=== PATIENT | female | born 1990 | race Caucasian/White ===

== ENCOUNTER → 2017-02-28 | Outpatient (CLI) | payer MEDICAID ==
[2017-02-28 12:00] LABS: CH 29.9; CHCM 32.4; HCT 39.6 % (34.0-46.0); HDW 2.42; HGB 12.5 gm/dL (11.4-16.0); MCH 29.1 pg (25.0-35.0); MCHC 31.5 g/dL (31.0-37.0); MCV 92.4 fL (80.0-100.0); Mean Platelet Volume 7.1; RBC 4.28 m/uL (3.80-5.40); RDW 14.6 % (11.5-15.5); WBC 7.8 k/uL (3.8-10.6)
[2017-02-28 12:12] LABS: Glucose 106 mg/dL (74-99); Non-African American GFR(MDRD) >60 (>60 ml/min/1.73 sqM)
[2017-02-28 12:37] LABS: Hepatitis B Surface Ag Index 0.07
== END | disposition home or self-care (01) ==
LOC: LABWHC1 11:03
PROVIDERS: ATTEND Obstetrics & Gynecology
DX: Z34.81 Encounter for supervision of other normal pregnancy, first trimester (principal)
CPT/HCPCS: 36415; 82565; 82947; 85027; 86762; 86780; 86850; 86900; 86901; 87340

== ENCOUNTER → 2017-04-09 | Outpatient (CLI) | payer MEDICAID ==
--- NOTE | 2017-03-21 08:02 | US ---
EXAMINATION TYPE: US OB anatomy transabd DATE OF EXAM: 03/21/2017 COMPARISON: NONE HISTORY: O36.62X0 Large for dates Anatomy TECHNIQUE: OBTA EXAM MEASUREMENTS: GESTATIONAL AGE / DATING Physician Established: (19 weeks/0 days) EDC: 08/15/2017 Dates by LMP: unknown Dates by First Scan: DRUG ABUSE PROGRAM COORDINATOR Dates by Current Scan for: (19 weeks/1 days) EDC: 08/14/2017 SURVEY IUP: Single PLACENTA: Posterior PREVIA: No previa REYES: 15.8 cm Normal CERVICAL LENGTH (transabdominal: norm > 3.0cm): 5.5 cm BIOMETRY PRESENTATION: Vertex LIE: Longitudinal BPD: 4.3 cm 18 weeks / 6 days HC: 16.1 cm 19 weeks / 0 days AC: 14.6 cm 19 weeks / 6 days FL: 3.0 cm 19 weeks / 2 days ESTIMATED WEIGHT IN GRAMS: 298 grams ESTIMATED WEIGHT IN LBS/OZS: 0 lbs. 11 oz. WEIGHT PERCENTAGE BASED ON ESTABLISHED DATE: 77 % HC/AC: 1.1 Normal FL/AC: 20.6 Normal HEART RATE: 149 bpm RHYTHM: Normal ANATOMY SEEN (within normal limits): * Lateral Vent (< 1 cm) 0.6 cm * Cisterna Magna (< 1.1 cm) 0.3 cm * Nuchal Fold (< 0.6 cm) 0.2 cm * Cerebellum (varies with age) 1.9 cm Choroid Plexus (bilateral) Midline Falx Cavus Septi Pellucidi Four Chamber Heart Stomach Situs Diaphragm Kidneys (bilateral) Bladder Cord Insert Three Vessel Cord Longitudinal Spine Transverse Spine Arms (bilateral) Legs (bilateral) ANATOMY NOT SEEN:2nd tech was [place], OB call back 04/09/17 @ 820 Outflow tracts: LVOT/RVOT Nose / Lips IMPRESSION: 1. Single intrauterine gestation estimated at 19 weeks 1 day gestation based on current ultrasound me asurements. This would have a calculated EDC of 08/14/2017. Correlate this with her physician establi shed EDC. 2. Cardiac activity measures 149 bpm. 3. Outflow tracts and nose and lips are not identified during this exam.
--- NOTE | 2017-04-09 10:58 | US ---
EXAMINATION TYPE: US OB Call Back DATE OF EXAM: 04/09/2017 COMPARISON: 03/21/2017 CLINICAL HISTORY: 26-year-old female O36.62X0 Large for dates. OB call back for outflow tracts and no se/lips FINDINGS: GESTATIONAL AGE / DATING Dates by Initial Survey Scan: (21 weeks/5 days) EDC: 08/15/2017 HEART RATE: 150 bpm RHYTHM: Normal ANATOMY SEEN (second anatomic survey look): Four Chamber Heart: wnl, incidental redundant flaps of the foramen ovale, normal imaging variant. Outflow tracts:? LVOT/RVOT Nose / Lips: wnl AGRICULTURAL SERVICES DIRECTOR NOTES: Outflow tracts and nose/lips visualized and appears within normal limits. IMPRESSION: The cardiac outflow tracts and nose/lips are visualized and appear normal. This completes the s urvey.
== END | disposition home or self-care (01) ==
LOC: RADUSWWP 03-21 06:53
PROVIDERS: ATTEND Obstetrics & Gynecology
DX: O36.62X0 Maternal care for excessive fetal growth, second trimester, not applicable or unspecified (principal); Z3A.19 19 weeks gestation of pregnancy
CPT/HCPCS: 76811

== ENCOUNTER 2017-04-26 12:03 | Outpatient (CLI) | payer MEDICAID ==
[2017-04-26 12:56] VITALS: BP 119/63; PULSE 107; RESP 16; TEMP 97.2
--- NOTE | 2017-04-26 14:15 | US ---
EXAMINATION TYPE: US OB >= 14 wk fetus DATE OF EXAM: 04/26/2017 COMPARISON: None CLINICAL HISTORY: ? srom at 24 weeks. Leaking fluid for a few weeks, fluid was tested today and was n egative for amniotic fluid TECHNIQUE: OBTA GESTATIONAL AGE / DATING Physician Established: (24 weeks/1 days) EDC: 08/15/2017 Dates by LMP: Dates by First Scan: (24 weeks/2 days) EDC: 08/14/2017 Dates by Current Scan: (24 weeks/5 days) EDC: 08/11/2017 SURVEY IUP: [place] PLACENTA: Posterior PREVIA: None REYES: 19.5 cm normal CERVICAL LENGTH (transabdominal: norm > 3.0cm): 3.8 cm BIOMETRY PRESENTATION: breech BPD: 6.2 cm 25 weeks / 2 days HC: 22.9 cm 25 weeks / 0 days AC: 19.6 cm 24 weeks / 3 days FL: 4.6 cm 25 weeks / 2 days ESTIMATED WEIGHT IN GRAMS: 739 grams ESTIMATED WEIGHT IN LBS/OZS: 1 lbs. 10 oz. WEIGHT PERCENTAGE BASED ON ESTABLISHED DATES: 73% HC/AC: 1.1 wnl FL/AC: 23.4 wnl HEART RATE: 145 bpm RHYTHM: normal survey is limited. IMPRESSION: Amniotic fluid index is normal. Single viable intrauterine corresponding to ultrasound age of 24 weeks 5 days with estimated date of delivery 08/11/2017. Limited survey.
--- NOTE | 2017-05-03 09:52 | P.MSEPDOC ---
Presenting Problems - Arrival Data Date of Arrival on Unit: 04/26/17 Time of Arrival on Unit: 12:05 Mode of Transport: Stretcher - Complaint OB-Reason for Admission/Chief Complaint: Rule Out PROM Medical History - Information : 2 Para: 1 Term: 1 : 0 Abortions: Spontaneous or Elective: 0 Number of Living Children: 1 - Gestational Age Expected Date of Delivery: 08/15/17 Gestational Age by DREW (wks/days): 25 Weeks and 1 Days Review of Systems - Review of Systems Constitutional: No problems Breast: No problems ENT: No problems Cardiovascular: No problems Respiratory: No problems Gastrointestinal: No problems Genitourinary: No problems Musculoskeletal: No problems Neurological: No problems Skin: No problems Comment: amsthma inhaler used if needed Vital Signs - Temperature Temperature: 97.2 F Temperature Source: Tympanic - Pulse Right Radial Pulse Rate: 107 Pulse Assessment Method: Automatic Cuff - Respirations Respiratory Rate: 16 Oxygen Delivery Method: Room Air O2 Sat by Pulse Oximetry: 99 - Blood Pressure Right Arm Blood Pressure: 119/63 Blood Pressure Mean: 81 Blood Pressure Source: Automatic Cuff Medical Screen Scoring (Pre) - Uterine Contractions Frequency: N/A Duration: N/A Intensity: N/A - Maternal Vital Signs Maternal Temperature: N/A Maternal Blood Pressure: N/A Signs of Preeclampsia: N/A Maternal Respirations: N/A - Maternal Trauma Maternal Trauma: N/A - Assessment Baseline FHR: 140 Heart Rate - NICHD Category: Category I (Normal) = 0 Position: N/A Station: N/A - Total Score Total Score (Pre): 0 - Level of Risk Level of Risk: Low (0-5) Physician Notification (Pre) - Physician Notified Physician Notified Date: 04/26/17 Physician Notified Time: 12:30 Physician/Practitioner Notifed:: edwar Spoke With: edwar New Order Received: Yes (trige/ultrasound/discharge) - Notification Comment Comment: call reports to dr blue Disposition - Disposition OB Disposition: Discharge to home Discharge Date: 04/26/17 Discharge Time: 13:40 I agree with the RN Medical Screening Exam: Yes Risk & Benefit of care provided described in d/c instruction: Yes Diagnosis: FALSE LABOR AT OR AFTER 37 COMPLETED WEEKS OF GESTATION
== END 2017-04-26 13:40 | disposition home or self-care (01) ==
LOC: FBPOP 12:03
PROVIDERS: ATTEND Obstetrics & Gynecology
DX: O47.1 False labor at or after 37 completed weeks of gestation (principal); Z3A.24 24 weeks gestation of pregnancy
CPT/HCPCS: 76805; 84112; 99213

== ENCOUNTER → 2017-05-03 | Outpatient (CLI) | payer MEDICAID ==
[2017-05-03 11:11] LABS: CH 30.4; CHCM 31.8; HCT 35.3 % (34.0-46.0); HDW 2.73; HGB 11.3 gm/dL (11.4-16.0); Hypochromasia Slight; MCH 30.7 pg (25.0-35.0); MCV 96.1 fL (80.0-100.0); Mean Platelet Volume 7.7; RBC 3.67 m/uL (3.80-5.40); RDW 15.6 % (11.5-15.5)
== END | disposition home or self-care (01) ==
LOC: LABWHC1 09:44
PROVIDERS: ATTEND Obstetrics & Gynecology
DX: Z34.82 Encounter for supervision of other normal pregnancy, second trimester (principal)
CPT/HCPCS: 36415; 82950; 85027

== ENCOUNTER → 2017-05-04 | Outpatient (CLI) | payer MEDICAID ==
[2017-05-04 11:01] LABS: CHCM 32.2; HCT 35.2 % (34.0-46.0); HDW 2.75; HGB 11.5 gm/dL (11.4-16.0); MCH 30.7 pg (25.0-35.0); MCHC 32.7 g/dL (31.0-37.0); MCV 93.8 fL (80.0-100.0); Mean Platelet Volume 7.7; RBC 3.75 m/uL (3.80-5.40); RDW 15.3 % (11.5-15.5); WBC 9.7 k/uL (3.8-10.6)
== END | disposition home or self-care (01) ==
LOC: LABWHC1 09:46
PROVIDERS: ATTEND Obstetrics & Gynecology
DX: Z34.82 Encounter for supervision of other normal pregnancy, second trimester (principal)
CPT/HCPCS: 36415; 82950; 85027

== ENCOUNTER 2017-05-29 10:39 | Outpatient (CLI) | payer MEDICAID ==
[2017-05-29 12:41] VITALS: BP 134/61; PULSE 129; RESP 18; TEMP 98.4
--- NOTE | 2017-05-30 08:37 | P.MSEPDOC ---
Presenting Problems - Arrival Data Date of Arrival on Unit: 05/29/17 Time of Arrival on Unit: 10:43 Mode of Transport: Ambulatory - Complaint OB-Reason for Admission/Chief Complaint: Other Comment: SOB, dizziness, tachycardia Medical History - Information : 2 Para: 1 Term: 1 : 0 Abortions: Spontaneous or Elective: 0 Number of Living Children: 1 - Gestational Age Expected Date of Delivery: 08/15/17 Gestational Age by DREW (wks/days): 29 Weeks and 0 Days Review of Systems - Review of Systems Constitutional: No problems Breast: No problems ENT: No problems Cardiovascular: No problems Respiratory: JHONY Gastrointestinal: No problems Genitourinary: No problems Musculoskeletal: No problems Neurological: No problems Skin: No problems Vital Signs - Temperature Temperature: 98.4 F Temperature Source: Oral - Pulse Right Pulse Rate: 129 Pulse Assessment Method: Automatic Cuff - Respirations Respiratory Rate: 18 Oxygen Delivery Method: Room Air O2 Sat by Pulse Oximetry: 99 - Blood Pressure Right Arm Blood Pressure: 134/61 Blood Pressure Mean: 85 Blood Pressure Source: Automatic Cuff Medical Screen Scoring (Pre) - Cervical Exam Dilation: Exam Deferred - Uterine Contractions Frequency: N/A Duration: N/A Intensity: N/A - Maternal Vital Signs Maternal Temperature: N/A Maternal Blood Pressure: N/A Signs of Preeclampsia: N/A Maternal Respirations: N/A - Maternal Trauma Maternal Trauma: N/A - Assessment Baseline FHR: 145 Heart Rate - NICHD Category: Category I (Normal) = 0 NST: Reactive Position: N/A Station: N/A - Total Score Total Score (Pre): 0 - Level of Risk Level of Risk: N/A Disposition - Disposition OB Disposition: Triage, Transfer to other dept./facility, Written follow up instructions reviewed Transferred to:: EC Discharge Date: 05/29/17 Discharge Time: 11:15 I agree with the RN Medical Screening Exam: Yes Risk & Benefit of care provided described in d/c instruction: Yes Diagnosis: SYNCOPE AND COLLAPSE
== END 2017-05-29 11:15 | disposition home or self-care (01) ==
LOC: FBPOP 10:39
PROVIDERS: ATTEND Obstetrics & Gynecology
DX: O26.893 Other specified pregnancy related conditions, third trimester (principal); R55 Syncope and collapse; Z3A.29 29 weeks gestation of pregnancy
CPT/HCPCS: 59025; 99213

== ENCOUNTER 2017-05-29 11:20 | Emergency (ER) | payer MEDICAID ==
[2017-05-29] MEDS ORDERED: RX INFO: IV CONTRAST WAS GIVEN 1 EACH MISC MISCELLANE PRN (12:36)
--- NOTE | 2017-05-29 12:39 | ED ---
Arrhythmia/Palpitations HPI - General Chief Complaint: Arrhythmia/Palpitations Stated Complaint: High Blood Pressure-30 wks preg Time Seen by Provider: 05/29/17 12:11 Source: patient, RN notes reviewed Mode of arrival: ambulatory Limitations: no limitations - History of Present Illness Initial Comments: This is a 26-year-old female who is currently almost 30 weeks with a single IUP who presents with complaints of shortness of breath is been persistent throughout the . She has elevated heart rate sweats blood pressure is very labile she at times will see black spots almost pass out. Today she had a monitoring which showed no acute findings no and her maladies with the with respect to the fetus. Her heart rate was noted to be in the 120s she does complain of orthopnea and sweats. The concern is for pulmonary embolism at this time. She's had no chest pain no overt fevers no cough or phlegm production. She is a nonsmoker no history of lung disease or known heart disease. MD Complaint: rapid heart beat - Related Data Home Medications Medication Instructions Recorded Confirmed Pnv,Calcium 72/Iron/Folic Acid 1 tab PO HS 03/14/05/29/17 [ Plus Tablet] Albuterol Sulfate [Proair Hfa] 2 puff INHALATION RT-Q6H PRN 05/29/17 05/29/17 Allergies Allergy/AdvReac Type Severity Reaction Status Date / Time No Known Allergies Allergy Verified 05/29/17 11:25 Review of Systems ROS Statement: Those systems with pertinent positive or pertinent negative responses have been documented in the HPI. ROS Other: All systems not noted in ROS Statement are negative. Past Medical History Past Medical History: No Reported History History of Any Multi-Drug Resistant Organisms: None Reported Additional Past Surgical History / Comment(s): [place] teeth Past Anesthesia/Blood Transfusion Reactions: No Reported Reaction Past Psychological History: ADD/ADHD, Depression Smoking Status: Former smoker Past Alcohol Use History: None Reported Past Drug Use History: None Reported - Past Family History Mother Family Medical History: Cancer General Exam - General Exam Comments Initial Comments: This a well-developed well-nourished awake alert oriented 3 female Limitations: no limitations General appearance: alert, anxious Head exam: Present: atraumatic, normocephalic, normal inspection Eye exam: Present: normal appearance, PERRL, EOMI. Absent: scleral icterus, conjunctival injection, periorbital swelling ENT exam: Present: normal exam, mucous membranes moist Neck exam: Present: normal inspection. Absent: tenderness, meningismus, lymphadenopathy Respiratory exam: Present: normal lung sounds bilaterally. Absent: respiratory distress, wheezes, rales, rhonchi, stridor Cardiovascular Exam: Present: normal rhythm, tachycardia GI/Abdominal exam: Present: soft (Abdomen is consistent with a stated gestational age) Extremities exam: Present: normal inspection, full ROM, normal capillary refill. Absent: tenderness, pedal edema, joint swelling, calf tenderness Back exam: Present: normal inspection Neurological exam: Present: alert, oriented X3, CN II-XII intact Psychiatric exam: Present: normal affect, normal mood Skin exam: Present: warm, dry, intact, normal color. Absent: rash Course Vital Signs 05/29/17 05/29/17 05/29/17 11:21 12:25 13:00 Temperature 97.3 F L Pulse Rate 117 H 108 H 111 H Respiratory 20 22 22 Rate Blood Pressure 127/65 154/95 138/82 O2 Sat by Pulse 100 99 99 Oximetry Medical Decision Making - Medical Decision Making I did discuss findings with the patient and previously with Dr. Han. Patient will be discharged she is a follow-up with cardiology she will likely have to do this through her primary doctor. - Lab Data Result diagrams: 05/29/17 11:48 05/29/17 11:48 Lab Results 05/29/17 05/29/17 05/29/17 Range/Units 11:48 11:48 11:48 WBC 12.2 H (3.8-10.6) k/uL RBC 3.83 (3.80-5.40) m/uL Hgb 11.8 (11.4-16.0) gm/dL Hct 36.4 (34.0-46.0) % MCV 95.0 (80.0-100.0) fL MCH 30.9 (25.0-35.0) pg MCHC 32.5 (31.0-37.0) g/dL RDW 16.2 H (11.5-15.5) % Plt Count 229 (150-450) k/uL Neutrophils % 80 % Lymphocytes % 14 % Monocytes % 4 % Eosinophils % 1 % Basophils % 0 % Neutrophils # 9.7 H (1.3-7.7) k/uL Lymphocytes # 1.7 (1.0-4.8) k/uL Monocytes # 0.5 (0-1.0) k/uL Eosinophils # 0.1 (0-0.7) k/uL Basophils # 0.1 (0-0.2) k/uL Anisocytosis Slight PT (9.0-12.0) sec INR (<1.2) APTT (22.0-30.0) sec Sodium 137 (137-145) mmol/L Potassium 3.8 (3.5-5.1) mmol/L Chloride 106 (98-107) mmol/L Carbon Dioxide 19 L (22-30) mmol/L Anion Gap 12 mmol/L BUN 4 L (7-17) mg/dL Creatinine 0.40 L (0.52-1.04) mg/dL Est GFR (MDRD) Af Amer >60 (>60 ml/min/1.73 sqM) Est GFR (MDRD) Non-Af >60 (>60 ml/min/1.73 sqM) Glucose 123 H (74-99) mg/dL Calcium 9.3 (8.4-10.2) mg/dL Magnesium 1.6 (1.6-2.3) mg/dL Total Bilirubin 0.1 L (0.2-1.3) mg/dL AST 18 (14-36) U/L ALT 32 (9-52) U/L Alkaline Phosphatase 140 H (38-126) U/L Total Creatine Kinase 29 L (30-135) U/L CK-MB (CK-2) 0.5 (0.0-2.4) ng/mL CK-MB (CK-2) Rel Index 1.7 Troponin I <0.012 (0.000-0.034) ng/mL Total Protein 6.4 (6.3-8.2) g/dL Albumin 3.5 (3.5-5.0) g/dL 05/29/17 Range/Units 11:48 WBC (3.8-10.6) k/uL RBC (3.80-5.40) m/uL Hgb (11.4-16.0) gm/dL Hct (34.0-46.0) % MCV (80.0-100.0) fL MCH (25.0-35.0) pg MCHC (31.0-37.0) g/dL RDW (11.5-15.5) % Plt Count (150-450) k/uL Neutrophils % % Lymphocytes % % Monocytes % % Eosinophils % % Basophils % % Neutrophils # (1.3-7.7) k/uL Lymphocytes # (1.0-4.8) k/uL Monocytes # (0-1.0) k/uL Eosinophils # (0-0.7) k/uL Basophils # (0-0.2) k/uL Anisocytosis PT 9.5 (9.0-12.0) sec INR 0.9 (<1.2) APTT 22.5 (22.0-30.0) sec Sodium (137-145) mmol/L Potassium (3.5-5.1) mmol/L Chloride (98-107) mmol/L Carbon Dioxide (22-30) mmol/L Anion Gap mmol/L BUN (7-17) mg/dL Creatinine (0.52-1.04) mg/dL Est GFR (MDRD) Af Amer (>60 ml/min/1.73 sqM) Est GFR (MDRD) Non-Af (>60 ml/min/1.73 sqM) Glucose (74-99) mg/dL Calcium (8.4-10.2) mg/dL Magnesium (1.6-2.3) mg/dL Total Bilirubin (0.2-1.3) mg/dL AST (14-36) U/L ALT (9-52) U/L Alkaline Phosphatase (38-126) U/L Total Creatine Kinase (30-135) U/L CK-MB (CK-2) (0.0-2.4) ng/mL CK-MB (CK-2) Rel Index Troponin I (0.000-0.034) ng/mL Total Protein (6.3-8.2) g/dL Albumin (3.5-5.0) g/dL - Radiology Data Radiology results: report reviewed (I did review the imaging and report no evidence of any pulmonary emboli.), image reviewed Disposition Clinical Impression: Dyspnea, Tachycardia, Near syncope Disposition: HOME SELF-CARE Condition: Good Instructions: Near Syncope (ED), Tachycardia (ED) Referrals: Caleb Peña MD [Primary Care Provider] - 1-2 days
[2017-05-29 12:53] LABS: Anisocytosis Slight; Basophils # (A) 0.1 k/uL (0-0.2); Basophils % (A) 0 %; CH 31.2; Eosinophils # (A) 0.1 k/uL (0-0.7); Eosinophils % (A) 1 %; HCT 36.4 % (34.0-46.0); HGB 11.8 gm/dL (11.4-16.0); Luc # (Auto) 0.13; Luc % (Auto) 1; Lymphocytes # (A) 1.7 k/uL (1.0-4.8); Lymphocytes % (A) 14 %; MCH 30.9 pg (25.0-35.0); MCHC 32.5 g/dL (31.0-37.0); Mean Platelet Volume 7.7; Monocytes # (A) 0.5 k/uL (0-1.0); Monocytes % (A) 4 %; Neutrophils # (A) 9.7 k/uL (1.3-7.7); Neutrophils % (A) 80 %; RBC 3.83 m/uL (3.80-5.40); RDW 16.2 % (11.5-15.5); WBC 12.2 k/uL (3.8-10.6); WBC (Perox) 12.46
[2017-05-29 13:00] LABS: INR 0.9 (<1.2); Partial Thromboplastin Time 22.5 sec (22.0-30.0); Prothrombin Time 9.5 sec (9.0-12.0)
[2017-05-29 13:03] LABS: ALT 32 U/L (9-52); AST 18 U/L (14-36); Alkaline Phosphatase 140 U/L (38-126); Anion Gap 12 mmol/L; Blood Urea Nitrogen 4 mg/dL (7-17); Calcium 9.3 mg/dL (8.4-10.2); Carbon Dioxide 19 mmol/L (22-30); Chloride 106 mmol/L (98-107); Glucose 123 mg/dL (74-99); Magnesium 1.6 mg/dL (1.6-2.3); Non-African American GFR(MDRD) >60 (>60 ml/min/1.73 sqM); Potassium 3.8 mmol/L (3.5-5.1); Sodium 137 mmol/L (137-145); Total Bilirubin 0.1 mg/dL (0.2-1.3); Total Protein 6.4 g/dL (6.3-8.2)
[2017-05-29 13:07] LABS: Creatine Kinase 29 U/L (30-135)
[2017-05-29 13:20] LABS: Creatine Kinase MB 0.5 ng/mL (0.0-2.4); Troponin I <0.012 ng/mL (0.000-0.034)
--- NOTE | 2017-05-29 14:58 | CT ---
EXAMINATION TYPE: CT angio chest DATE OF EXAM: 05/29/2017 COMPARISON: NONE HISTORY: Difficulty breathing and hypertension. Patient is [address] DLP: 476.00 mGycm. Automated Exposure Control for Dose Reduction was Utilized. CONTRAST: CTA scan of the thorax is performed with IV Contrast, patient injected with 83 mL of Omnipaque 350, p ulmonary embolism protocol. MIP Images are created on CT scanner and reviewed. FINDINGS: LUNGS: The lungs are grossly clear, there is no concerning parenchymal mass or nodule identified. T here is no pleural effusion or pneumothorax seen. The tracheobronchial tree is patent. MEDIASTINUM: Soft tissue density within the superior mediastinum likely relates to residual thymic ti ssue. There is satisfactory enhancement of the pulmonary artery and its branches, there is no CT evid ence for pulmonary embolism. There are no greater than 1 cm hilar or mediastinal lymph nodes. No c ardiomegaly or pericardial effusion is seen. OTHER: Small hiatal hernia is present. IMPRESSION: 1. No evidence of pulmonary embolus. 2. No acute cardiopulmonary pathology. 3. Small hiatal hernia.
[2017-05-29 16:07] VITALS: RESP 20
[2017-05-29 16:52] VITALS: BP 118/63; PULSE 105; TEMP 98
== END 2017-05-29 16:54 | disposition home or self-care (01) ==
LOC: EC 11:20
DX: O99.89 Other specified diseases and conditions complicating pregnancy, childbirth and the puerperium (principal); R00.0 Tachycardia, unspecified; R06.00 Dyspnea, unspecified; R55 Syncope and collapse; Z3A.30 30 weeks gestation of pregnancy; Z87.891 Personal history of nicotine dependence
CPT/HCPCS: 36415; 93005; 80053; 82550; 82553; 83735; 84484; 85025; 85610; 85730; 71275; 99285; Q9967

== ENCOUNTER → 2017-06-06 | Outpatient (CLI) | payer MEDICAID ==
--- NOTE | 2017-06-07 09:05 | ECHOF ---
Referral Reason:PALPAITATION SOB MEASUREMENTS -------- HEIGHT: 162.6 cm WEIGHT: 93.9 kg BP: 131/75 RVIDd: 2.4 cm (< 3.3) IVSd: 0.9 cm (0.6 - 1.1) LVIDd: 5.1 cm (3.9 - 5.3) LVPWd: 0.9 cm (0.6 - 1.1) IVSs: 1.4 cm LVIDs: 3.3 cm LVPWs: 1.4 cm LAESV Index (A-L): 16.92 ml/m Ao Diam: 3.0 cm (2.0 - 3.7) AV Cusp: 1.9 cm (1.5 - 2.6) LA Diam: 3.6 cm (2.7 - 3.8) MV E Cal: 0.68 m/s MV DecT: 256 ms MV A Cal: 1.05 m/s MV E/A Ratio: 0.65 RAP: 5.00 mmHg RVSP: 10.02 mmHg FINDINGS -------- Sinus rhythm. This was a technically adequate study. Patient is 31 weeks . The left ventricular size is normal. Left ventricular wall thickness is normal. Overall left ventricular systolic function is normal with, an EF between 60 - 65 %. The right ventricle is normal in size and function. Normal LA size by volume 22+/-6 ml/m2. The right atrium is normal in size. The aortic valve is trileaflet, and appears structurally normal. No aortic stenosis or regurgitation. The mitral valve leaflets are mildly thickened. There is trace mitral regurgitation. Trace tricuspid regurgitation present. Right ventricular systolic pressure is normal at < 35 mmHg. There is no evidence of pulmonary hypertension. The pulmonic valve was not well visualized. The aortic root size is normal. Normal inferior vena cava with normal inspiratory collapse consistent with estimated right atrial pressure of 5 mmHg. The pericardium is normal. There is no pericardial effusion. CONCLUSIONS -------- 1. Sinus rhythm. 2. Trace tricuspid regurgitation present. 3. Right ventricular systolic pressure is normal at < 35 mmHg. 4. There is no evidence of pulmonary hypertension. 5. The pulmonic valve was not well visualized. 6. The aortic root size is normal. 7. There is no pericardial effusion. 8. This was a technically adequate study. 9. Patient is 31 weeks . 10. The left ventricular size is normal. 11. Overall left ventricular systolic function is normal with, an EF between 60 - 65 %. 12. Normal LA size by volume 22+/-6 ml/m2. 13. The aortic valve is trileaflet, and appears structurally normal. No aortic stenosis or regurgitation. 14. The mitral valve leaflets are mildly thickened. 15. There is trace mitral regurgitation. HEMODIALYSIS PATIENT CARE SPECIALIST: Getachew Richards RDCS
--- NOTE | 2017-06-11 13:16 | HM ---
HOLTER MONITOR REPORT A 24-Hour DCG. Mrs King is in the second trimester of . She has several symptoms most of which when she felt short of breath had some sweating and one episode when she felt increased heart rate. Predominant rhythm is sinus with a heart rate ranging from 73 to 147 beats per minute with an average heart rate of 104 beats per minute. There were rare isolated PACs and PVCs without any runs of SVT, VT of bradyarrhythmia. Sinus tachycardia was the predominant feature noted. At the time, she complained of having some shortness of breath she was in a sinus rhythm at a rate of 120 beats per minute. At the time she felt she had shortness of breath, at about 10:21 a.m., she also in sinus tachycardia at 126 beats per minute. There is correlation of sinus tachycardia with her perception of a rapid heartbeat and shortness of breath. FINAL IMPRESSION: Predominant rhythm is sinus with episodes of sinus tachycardia that correlates with her perception of shortness of breath and rapid heartbeat sensation. MMODL / IJN: [id number] /
== END | disposition home or self-care (01) ==
LOC: RADMRIMAIN 14:27
PROVIDERS: ATTEND Internal Medicine Interventional Cardiology
DX: R00.0 Tachycardia, unspecified (principal); E05.90 Thyrotoxicosis, unspecified without thyrotoxic crisis or storm
CPT/HCPCS: 36415; 84439; 84443; 93225; 93226; 93306

== ENCOUNTER → 2017-07-11 | Outpatient (CLI) | payer MEDICAID ==
--- NOTE | 2017-07-11 10:33 | US ---
EXAMINATION TYPE: US OB anatomy transabd DATE OF EXAM: 07/11/2017 COMPARISON: US 04/26/2017 HISTORY: 26-year-old female O36.63X0 large for dates 3rd trimester TECHNIQUE: Transabdominal (TA) FINDINGS: EXAM MEASUREMENTS: GESTATIONAL AGE / DATING Physician Established: (35 weeks/0 days) EDC: 08/15/2017 Dates by LMP: (35 weeks/0 days) EDC: 08/15/2017 Dates by First Scan: (35 weeks/1 days) EDC: 08/14/2017 Dates by Current Scan for: (36 weeks/5 days +/- 2 weeks 4 days) EDC: 08/03/2017 SURVEY IUP: Single PLACENTA: Posterior PREVIA: No previa. The caudal placental margin measures 6.3 cm from the internal cervical os. REYES: 18.5 cm Normal CERVICAL LENGTH (transabdominal: norm > 3.0cm): 4.0 cm BIOMETRY PRESENTATION: Vertex LIE: Longitudinal BPD: 9.1 cm 37 weeks / 0 days HC: 33.2 cm 37 weeks / 6 days AC: 32.4 cm 36 weeks / 2 days FL: 6.91 cm 35 weeks / 3 days ESTIMATED WEIGHT IN GRAMS: 2910 grams ESTIMATED WEIGHT IN LBS/OZ: 6 lbs. 7 oz. WEIGHT PERCENTAGE BASED ON ESTABLISHED DATE: 83 % HC/AC: 1.02 Normal FL/AC: 21.33 Normal HEART RATE: 129 bpm RHYTHM: Normal ANATOMY SEEN (within normal limits): Choroid Plexus (bilateral) Midline Falx Stomach Nose / Lips Diaphragm Kidneys (bilateral) Bladder Three Vessel Cord Longitudinal Spine Transverse Spine Arms (bilateral) Legs (bilateral) ANATOMY NOT SEEN due to advanced age and crowding: Lateral Vent Cavus Septi Pellucidi Cisterna Magna Cerebellum Four Chamber Heart Outflow tracts: RVOT/LVOT Situs Cord Insert Medical Insurance Coder notes: Viable IUP with an DREW of 08/03/2017 on this exam. IMPRESSION: 1. Single live intrauterine with estimated gestational age of 35 weeks 0 days by LMP. Curre nt ultrasound biometry is larger (36 weeks 5 days) but still concordant. 2. This places the child at the 83rd percentile for weight versus 73rd percentile on 04/26/2017 with 8 days more growth than expected from prior exam.
== END | disposition home or self-care (01) ==
LOC: RADUSWWP 08:56
PROVIDERS: ATTEND Obstetrics & Gynecology
DX: O36.63X0 Maternal care for excessive fetal growth, third trimester, not applicable or unspecified (principal); Z3A.35 35 weeks gestation of pregnancy
CPT/HCPCS: 76811

== ENCOUNTER 2017-08-09 05:59 | Inpatient (IN) | payer MEDICAID ==
--- NOTE | 2017-08-08 19:24 | P.HPOB ---
History of Present Illness H&P Date: 08/08/17 Chief Complaint: Induction of labor This is a 26-year-old female 2 para 1 with an estimated date of confinement of 08/15/2007, estimated gestational age of 39 and one sevenths weeks, who presents to labor and delivery for induction of labor. Ultrasound 1 week ago did show breech presentation however 2 days ago her ultrasound did show vertex presentation. She would like induction of labor while the baby still is vertex. She has been feeling irregular contractions. has been complicated by irregular heart rate. She has been seen by Dr. Quezada with cardiology and she was placed on metoprolol for a short time during the . This has been discontinued at this time. She still gets shortness of breath and irregular palpitations. She complains of significant pelvic pain and pressure. labs: GC/chlamydia-negative Syphilis antibody-negative Random glucose-106 Hepatitis B surface antigen-negative Hemoglobin-12.5 Blood type-O+ Antibody screen-negative Obstetrical ultrasound-normal anatomy One hour Glucola-173 Repeat 1 hour Glucola-127 Group B streptococcus-negative Obstetrical history: . History of 1 vaginal delivery at term. Gynecologic history: No history of sexual transmitted diseases. Review of Systems Constitutional: Denies chills, Denies fever Eyes: denies blurred vision, denies pain Ears, nose, mouth and throat: Denies headache, Denies sore throat Cardiovascular: Reports irregular heart beat, Reports palpitations, Reports shortness of breath Respiratory: Denies cough Gastrointestinal: Reports abdominal pain (Contractions) Genitourinary: Reports pelvic pain, Reports Musculoskeletal: Reports low back pain Psychiatric: Reports difficulty concentrating, Denies anxiety, Denies depression Past Medical History Past Medical History: Asthma History of Any Multi-Drug Resistant Organisms: None Reported Additional Past Surgical History / Comment(s): Mosby teeth Past Anesthesia/Blood Transfusion Reactions: No Reported Reaction Past Psychological History: ADD/ADHD, Depression Smoking Status: Former smoker Past Alcohol Use History: None Reported Past Drug Use History: None Reported - Past Family History Mother Family Medical History: Cancer Medications and Allergies Home Medications Medication Instructions Recorded Confirmed Type Pnv,Calcium 72/Iron/Folic Acid 1 tab PO HS 03/14/16 05/29/17 History [ Plus Tablet] Albuterol Sulfate [Proair Hfa] 2 puff INHALATION RT-Q6H PRN 05/29/17 05/29/17 History Allergies Allergy/AdvReac Type Severity Reaction Status Date / Time No Known Allergies Allergy Verified 05/29/17 11:25 Exam Osteopathic Statement: *. No significant issues noted on an osteopathic structural exam other than those noted in the History and Physical/Consult. HEENT: Within normal limits Heart: Regular rate and rhythm Lungs: Clear to auscultation bilaterally Abdomen: Cervix: 1.5 cm/50%/-3 heart tones: 140s by Doppler Extremities: Trace edema Assessment and Plan (1) 39 weeks gestation of Status: Acute Code(s): Z3A.39 - 39 WEEKS GESTATION OF SNOMED Code( s): 82113476 Plan: Proceed with oxytocin induction of labor. Expectant management. Epidural anesthesia if desired.
[2017-08-09] MEDS ORDERED: LIDOCAINE 1% (PF) 10 MG/ML (30 ML SDV) SQ PRN (06:29)
[2017-08-09] MEDS ORDERED: OXYTOCIN 20 UNITS/1000 ML NS 1,000 ML IV SCH ×2 (06:29→14:00)
[2017-08-09] MEDS ORDERED: AMPICILLIN 2,000 MG in SODIUM CHLORIDE 0.9% 100 ML IVPB STA (06:29)
[2017-08-09] MEDS ORDERED: TERBUTALINE 1 MG/ML VIAL SQ PRN (06:29)
[2017-08-09] MEDS ORDERED: LIDOCAINE 1% 20 ML VIAL (10MG/ML) FOR IV START INTRADERMA PRN (06:29)
[2017-08-09] MEDS ORDERED: METHYLERGONOVINE 0.2 MG/ML 1 ML AMP IM PRN (06:29)
[2017-08-09] MEDS ORDERED: OXYTOCIN 10 UNIT/ML 1 ML VIAL IM PRN (06:29)
[2017-08-09] MEDS ORDERED: LACTATED RINGERS 1,000 ML IV SCH (06:29)
[2017-08-09] MEDS ORDERED: CARBOPROST TROMETHAMINE 250 MCG/ML 1 ML AMP IM PRN (06:29)
[2017-08-09 06:37] LABS: Anisocytosis Slight; Basophils % (A) 0 %; CH 28.9; CHCM 31.6; Eosinophils # (A) 0.2 k/uL (0-0.7); Eosinophils % (A) 3 %; HDW 3.02; HGB 11.3 gm/dL (11.4-16.0); Hypochromasia Slight; Luc # (Auto) 0.15; Luc % (Auto) 2; Lymphocytes # (A) 1.6 k/uL (1.0-4.8); Lymphocytes % (A) 18 %; MCHC 31.5 g/dL (31.0-37.0); MCV 92.1 fL (80.0-100.0); Mean Platelet Volume 7.6; Monocytes # (A) 0.4 k/uL (0-1.0); Monocytes % (A) 4 %; Neutrophils # (A) 6.2 k/uL (1.3-7.7); Neutrophils % (A) 73 %; RBC 3.91 m/uL (3.80-5.40); RDW 17.8 % (11.5-15.5); WBC 8.6 k/uL (3.8-10.6)
[2017-08-09 06:38] VITALS: BMI 37.7
[2017-08-09] MEDS ORDERED: ALBUTEROL NEBULIZED 2.5 MG/3 ML INHALATION PRN (08:15)
[2017-08-09] MEDS ORDERED: CITRIC ACID-SODIUM CITRATE 15 ML CUP PO ONE (08:15)
[2017-08-09] MEDS ORDERED: LACTATED RINGERS 1,000 ML IV ONE (08:15)
[2017-08-09] MEDS ORDERED: ceFAZolin IN SWFI 2 GM/20 ML SYRINGE IVP ONE (08:30)
[2017-08-09] MEDS ORDERED: AMPICILLIN 1,000 MG in SODIUM CHLORIDE 0.9% 50 ML IVPB SCH (11:00)
[2017-08-09] MEDS: LACTATED RINGERS 1,000 ML IV SCH ×5 (11:31→23:00)
[2017-08-09] MEDS ORDERED: PHENYLEPHRINE-0.9% NACL SYG 1 MG/10 ML SYRINGE ONE (12:10)
[2017-08-09] MEDS ORDERED: OXYTOCIN 10 UNIT/ML 1 ML VIAL ONE (12:10)
[2017-08-09] MEDS ORDERED: NALBUPHINE 10 MG/ML AMPUL ONE (12:10)
[2017-08-09] MEDS ORDERED: ONDANSETRON 4 MG/2 ML VIAL ONE (12:10)
[2017-08-09] MEDS ORDERED: MORPHINE SULFATE (PF) 0.3 MG/0.3 ML SYR ONE (12:10)
[2017-08-09] MEDS ORDERED: KETOROLAC 30 MG/ML 1 ML VIAL ONE (12:10)
--- NOTE | 2017-08-09 13:02 | P.OP ---
Date of Procedure: 08/09/17 Preoperative Diagnosis: 1. Intrauterine at 39 and one sevenths weeks. 2. Breech presentation. 3. Unstable lie. Postoperative Diagnosis: Same Procedure(s) Performed: Primary low transverse section Anesthesia: spinal (Duramorph) Surgeon: Delores Han Electrical Engineering Technologist #1: Harris Diez Estimated Blood Loss (ml): 600 Pathology: other (Placenta) Condition: stable Disposition: floor Indications for Procedure: This is a 26-year-old female 2 para 1 at 39 and one sevenths weeks who presented this morning for induction of labor. Prior to rupture of membranes I performed a bedside ultrasound due to history of breech and week ago. Baby was noted to be in a footling breech presentation today. 2 days ago in the office he was vertex. I offered to attempt a version however the patient declined. Therefore we are proceeding with primary section secondary to breech hasn't patient an unstable lie. I have discussed the risks, benefits, and alternative therapies for the above- mentioned procedure and for both sedation/anesthesia as well as necessary blood products administration, if indicated, as they pertain to this patient. The patient has indicated her understanding and acceptance of the risks and procedures discussed. Operative Findings: A viable male infant is noted in the footling breech presentation. Apgars are 9 at 1 minute and 9 at 5 minutes and weight was 8 lbs. 3 oz. Normal uterus tubes and ovaries are noted. Description of Procedure: The patient is taken to the operating room where she is placed in the dorsal supine position with leftward tilt after spinal Duramorph anesthesia is given. She is prepped and draped in the normal sterile fashion. Skin was tested and found to be adequately anesthetized. A Pfannenstiel skin incision was made with a scalpel. A second knife was used to carry the incision down to the underlying layer of fascia. The fascia was nicked in the midline with a scalpel and then extended laterally bilaterally with Mars scissors. The anterior lip of the fascia was grasped with 2 Abbie clamps and then dissected off the underlying rectus muscle in the midline with Mars scissors. The inferior aspect of the fascial incision was grasped with 2 Abbie clamps and dissected off the underlying rectus muscle and the midline with Mars scissors. Next the peritoneum layer was tented up with 2 hemostats and then entered sharply with the scalpel. The incision is extended superiorly and inferiorly with Metzenbaum scissors. Next a DeLee retractor is placed. The vesicouterine peritoneum is entered sharply with Metzenbaum scissors and extended laterally bilaterally with Metzenbaum scissors and then the bladder flap is pushed inferiorly. The lower uterine segment is incised in transverse fashion with the scalpel and then bluntly entered with a hemostat. Clear fluid is noted. The incision was then extended laterally bilaterally with 2 fingers. Next the 's feet are delivered through the incision. The remainder of the delivered with the buttocks, followed by the trunk, followed by each arm in a flexed position, followed by the head in a flexed position. Nose and mouth are bulb suctioned. Cord is clamped and cut. is taken to warmer by nursing staff. Uterine fundus is gently massaged and placenta is delivered manually. Uterus is exteriorized and cleared of all clots and debris. Uterine incision is closed with 0 Vicryl suture in a running locked fashion. A second layer of 0 Vicryl suture is used in a running fashion for hemostasis. Vital interrupted stitches are placed on the left corner of the incision for hemostasis. Once adequate hemostasis as assured, the vesicouterine peritoneum is reapproximated with 2-0 Vicryl suture in a running fashion. Posterior cul-de-sac is suctioned of all clots and debris. Uterus is returned to the abdomen. Incision is noted to be hemostatic. Peritoneal layer is closed with 0 Vicryl suture in a running fashion. Muscle layer is reapproximated with 0 Vicryl suture in interrupted fashion. Fascia layer is then closed with 0 PDS suture with 2 sutures meeting in the midline and the knots buried in either side and in the midline. The subcutaneous tissue was then closed with 2-0 Vicryl suture. Skin layer was then closed with doreen. All sponge and needle counts are correct. The patient is taken to recovery room in stable condition.
[2017-08-09] MEDS ORDERED: ACETAMINOPHEN TAB 325 MG TAB PO PRN (14:00)
[2017-08-09] MEDS ORDERED: METOCLOPRAMIDE 5 MG/ML 2 ML VIAL IVP PRN (14:00)
[2017-08-09] MEDS ORDERED: Acetaminophen-Codeine 300-30mg TAB PO PRN (14:00)
[2017-08-09] MEDS ORDERED: LANOLIN CREAM 5 GM TUBE TOPICAL PRN (14:00)
[2017-08-09] MEDS ORDERED: SIMETHICONE 80 MG CHEWABLE PO PRN (14:00)
[2017-08-09] MEDS ORDERED: diphenhydrAMINE 50 MG CAP PO PRN (14:00)
[2017-08-09] MEDS ORDERED: diphenhydrAMINE 25 MG CAP PO PRN (14:00)
[2017-08-09] MEDS ORDERED: diphenhydrAMINE 50 MG/ML 1 ML VIAL IVP PRN ×2 (14:00)
[2017-08-09] MEDS ORDERED: NALOXONE 0.4 MG/ML 1 ML VIAL IV PRN (14:00)
[2017-08-09] MEDS ORDERED: ZOLPIDEM 5 MG TAB PO PRN (14:00)
[2017-08-09] MEDS ORDERED: ONDANSETRON 4 MG/2 ML VIAL IVP PRN (14:00)
[2017-08-09] MEDS: ALBUTEROL NEBULIZED 2.5 MG/3 ML INHALATION SCH ×2 (16:23→20:30)
[2017-08-09] MEDS: KETOROLAC 30 MG/ML 1 ML VIAL IVP PRN (18:30)
[2017-08-09] MEDS: SENNOSIDES-DOCUSATE SODIUM 1 EACH TAB PO SCH (21:40)
[2017-08-10] MEDS: KETOROLAC 30 MG/ML 1 ML VIAL IVP PRN ×2 (00:30→09:10)
[2017-08-10] MEDS: ALBUTEROL NEBULIZED 2.5 MG/3 ML INHALATION SCH ×7 (00:35→21:16)
[2017-08-10 07:17] LABS: Anisocytosis Slight; Basophils % (A) 0 %; CH 29.4; CHCM 31.3; Eosinophils # (A) 0.1 k/uL (0-0.7); Eosinophils % (A) 1 %; HCT 31.2 % (34.0-46.0); Hypochromasia Moderate; Luc % (Auto) 1; Lymphocytes # (A) 1.2 k/uL (1.0-4.8); Lymphocytes % (A) 14 %; MCH 28.9 pg (25.0-35.0); MCHC 30.6 g/dL (31.0-37.0); MCV 94.4 fL (80.0-100.0); Mean Platelet Volume 7.4; Monocytes # (A) 0.4 k/uL (0-1.0); Monocytes % (A) 4 %; Neutrophils % (A) 80 %; RBC 3.31 m/uL (3.80-5.40); RDW 16.3 % (11.5-15.5); WBC 8.7 k/uL (3.8-10.6); WBC (Perox) 8.87
[2017-08-10 07:19] LABS: HGB 9.5 gm/dL (11.4-16.0)
--- NOTE | 2017-08-10 08:47 | P.PNOBGPC ---
Subjective - Subjective Principal diagnosis: Status post primary section postoperative day #1 Interval history: Patient is doing well. She is ambulating. She is passing flatus. She denies any bowel movements. Lochia is decreasing. She is breast-feeding. She is sore more on the left side of her incision. She has a chronic cough and this is making it worse. Patient reports: Reports appetite normal, Reports voiding normally, Reports pain well controlled, Reports ambulating normally : doing well, nursing well Objective - Vital Signs Latest vital signs: Vital Signs Temp Pulse Pulse Resp BP Pulse Ox 08/10/17 08:08 84 08/10/17 07:54 80 08/10/17 04:00 98.1 F 81 16 111/58 97 08/10/17 00:45 80 08/10/17 00:35 80 08/10/17 00:00 97.6 F 83 16 119/62 99 08/09/17 20:42 75 08/09/17 20:30 73 08/09/17 20:00 97.9 F 85 16 113/68 99 08/09/17 16:35 75 08/09/17 16:25 75 08/09/17 16:10 97.7 F 71 18 120/67 96 08/09/17 15:00 97.0 F L 78 18 116/62 98 08/09/17 14:30 75 113/63 97 08/09/17 14:00 97.4 F L 81 18 119/66 98 08/09/17 13:45 97.4 F L 71 18 113/57 97 08/09/17 13:30 97.6 F 79 18 114/56 98 08/09/17 13:15 97.5 F L 88 18 115/64 100 08/09/17 13:00 97.0 F L 86 18 109/60 98 Intake and Output 08/09/17 08/10/17 08/10/17 22:59 06:59 14:59 Intake Total 1225 Output Total 500 400 Balance -500 825 Intake: IV 625 Lactated Ringers 1,000 ml 625 @ 125 mls/hr IV .Q8H [facility] Rx#:[id number] Oral 600 Output: Urine 500 400 Uretheral ([place]) 400 Other: # Voids 1 - Exam Extremities: Present: normal. Absent: tenderness Abdomen: Present: normal appearance, soft. Absent: distention, tenderness Incision: Present: normal, dry, intact Uterus: Present: normal, firm. Absent: tenderness - Labs Labs: Abnormal Lab Results - Last 24 Hours (Table) 08/10/17 Range/Units 06:24 RBC 3.31 L (3.80-5.40) m/uL Hgb 9.5 L D (11.4-16.0) gm/dL Hct 31.2 L (34.0-46.0) % MCHC 30.6 L (31.0-37.0) g/dL RDW 16.3 H (11.5-15.5) % Assessment and Plan Assessment: Impression is status post primary section postoperative day #1. (1) 39 weeks gestation of Current Visit: Yes Status: Acute Code(s): Z3A.39 - 39 WEEKS GESTATION OF SNOMED Code(s): 94220473 Plan: An is to continue with postoperative and care. Will advance diet as tolerated. Will switch to oral pain medications today.
[2017-08-10] MEDS: SENNOSIDES-DOCUSATE SODIUM 1 EACH TAB PO SCH ×2 (09:13→20:59)
--- NOTE | 2017-08-10 11:03 | P.PN ---
Progress Note - Text 08/10 636am 26 year old female s/p csection.vas2, no c/o nausea or vomitting,mild pruritis.doing well.
--- NOTE | 2017-08-10 15:12 | XR ---
EXAMINATION TYPE: XR chest 2V DATE OF EXAM: 08/10/2017 COMPARISON: NONE HISTORY: Productive cough TECHNIQUE: Frontal and lateral views of the chest are obtained. FINDINGS: There is no focal air space opacity, pleural effusion, or pneumothorax seen. The cardiac silhouette size is within normal limits. Patient is rotated. The osseous structures are intact. IMPRESSION: No acute cardiopulmonary process.
[2017-08-10] MEDS: IBUPROFEN 600 MG TAB PO PRN ×2 (15:15→21:37)
[2017-08-10] MEDS: Acetaminophen-Codeine 300-30mg TAB PO PRN (17:12)
[2017-08-10] MEDS: guaiFENesin-DM 100-10MG/5ML 10 ML CUP PO PRN (21:51)
[2017-08-11] MEDS: Acetaminophen-Codeine 300-30mg TAB PO PRN ×2 (00:27→08:41)
[2017-08-11] MEDS: ALBUTEROL NEBULIZED 2.5 MG/3 ML INHALATION SCH ×4 (03:33→11:44)
[2017-08-11] MEDS: IBUPROFEN 600 MG TAB PO PRN (04:22)
[2017-08-11] MEDS: guaiFENesin-DM 100-10MG/5ML 10 ML CUP PO PRN ×2 (04:23→10:24)
--- NOTE | 2017-08-11 07:27 | P.PNOBGPC ---
Subjective - Subjective Patient reports: Reports appetite normal, Reports voiding normally, Reports pain well controlled, Reports ambulating normally : doing well Objective - Vital Signs Latest vital signs: Vital Signs Temp Pulse Pulse Resp BP BP Pulse Ox 08/11/17 00:00 98 F 96 15 124/63 08/10/17 21:29 96 08/10/17 21:16 92 08/10/17 16:17 96 08/10/17 16:07 94 08/10/17 16:00 97.7 F 89 17 121/65 100 08/10/17 14:00 16 08/10/17 12:13 88 08/10/17 12:00 98.0 F 99 15 119/63 97 08/10/17 11:58 84 08/10/17 08:08 84 08/10/17 08:00 97.9 F 90 12 119/63 97 08/10/17 07:54 80 - Exam Lungs: bilateral: normal Chest: Normal S1, Normal S2 Extremities: Present: normal Abdomen: Present: normal appearance, soft. Absent: distention, tenderness Incision: Present: normal, dry, intact Uterus: Present: normal, firm Assessment and Plan (1) delivery delivered Narrative/Plan: day #2. Patient is resting without complaints wishes to go home. She did have a cough yesterday and chest x-ray was negative, patient feels much better since she's been taking Robitussin-DM. Patient's incision is intact and dry. She is ambulating and urinating without difficulty and tolerating regular diet. My impression is a normal postoperative course. Patient's felt be stable for discharge home today we will need to return on Sunday for staple removal. Current Visit: Yes Status: Acute Code(s): O82 - ENCOUNTER FOR DELIVERY WITHOUT INDICATION SNOMED Code(s): 289459129
--- NOTE | 2017-08-11 07:31 | P.DS ---
Providers Date of admission: 08/09/17 05:59 Expected date of discharge: 08/11/17 Attending physician: Delores Han Primary care physician: Stated None - Discharge Diagnosis(es) (1) delivery delivered Current Visit: Yes Status: Acute Hospital Course: Please see dictated H&P for intimate details of this patient's admission per Dr. Copeland. In brief summary this is a 26-year-old 2 para 1 female whose had unstable lie and subsequently underwent a primary section for breech presentation. Postoperatively the patient did do well however she had a cough which was evaluated and didn't improve with Robitussin. She had a course of Zithromax. By postoperative #2 patient was felt to be stable for discharge home follow up with Dr. Copeland on Sunday for staple removal. Due to the patient's cough I didn't think the doreen were ready to be removed on postoperative day # 2. Procedures: Primary low transverse section Patient Condition at Discharge: Good Plan - Discharge Summary New Discharge Prescriptions: New Acetaminophen-Codeine 300-30mg [Tylenol w/codeine #3] 1 each PO Q4HR PRN #30 tab PRN Reason: Mild Pain Ibuprofen [Motrin] 600 mg PO Q6HR PRN #60 tab PRN Reason: Mild Pain Or Fever >= 100.5 Continue Pnv,Calcium 72/Iron/Folic Acid [ Plus Tablet] 1 tab PO HS Albuterol Sulfate [Proair Hfa] 2 puff INHALATION RT-Q6H PRN PRN Reason: Shortness Of Breath Albuterol Nebulized [Ventolin Nebulized] 2.5 mg INHALATION Q4H Discharge Medication List Pnv,Calcium 72/Iron/Folic Acid [ Plus Tablet] 1 tab PO HS 03/14/16 [ History] Albuterol Sulfate [Proair Hfa] 2 puff INHALATION RT-Q6H PRN 05/29/17 [History] Albuterol Nebulized [Ventolin Nebulized] 2.5 mg INHALATION Q4H 08/09/17 [History ] Acetaminophen-Codeine 300-30mg [Tylenol w/codeine #3] 1 each PO Q4HR PRN #30 tab 08/10/17 [Rx] Ibuprofen [Motrin] 600 mg PO Q6HR PRN #60 tab 08/10/17 [Rx] Follow up Appointment(s)/Referral(s): Delores Han DO [Doctor of Osteopathic Medicine] - 08/17/17 1:30 pm (Please come to the office on Sunday, August 13 for staple removal. visit on September 26 at 11:30 as well.) Patient Instructions/Handouts: (DC) Activity/Diet/Wound Care/Special Instructions: Instructions 1. Do not begin any exercise program for 3 weeks. 2. Do not resume sexual relations for 3 weeks or longer if uncomfortable. 3. You may take tub baths or showers at any time. 4. You may use tampons if desired after 3 weeks. 5. Keep the area of episiotomy (stitches) clean and dry. 6. If you are not nursing, wear a good fitting, supportive bra during the day and limit fluid intake for at least 1 week to prevent breast engorgement. 7. Call the office, [phone], within the next week to make appointment for your 6 week checkup if it has not already been made. 8. Report any of the following occurrences to the doctor promptly: a. Heavy, excessive bleeding b. Chills, fever c. Burning or frequency of urination d. Pain or redness and breasts if nursing e. Increasing pain or swelling in episiotomy (stitches). In addition to the above instructions, the following additional should be followed: 1. No heavy lifting or straining (exercising) until after 6 week checkup. 2. Keep abdominal incision clean and dry: You may wear a dressing if more comfortable. 3. Make office appointment for 10 days after going home or as instructed by her doctor. Discharge Disposition: HOME SELF-CARE
[2017-08-11] MEDS: SENNOSIDES-DOCUSATE SODIUM 1 EACH TAB PO SCH ×2 (08:42→10:24)
[2017-08-11 09:43] VITALS: BP 123/69; PULSE 83; RESP 17; TEMP 97.9
== END 2017-08-11 12:10 | disposition home or self-care (01) | DRG 765 ==
LOC: 4FBP 05:59
PROVIDERS: ADMIT Obstetrics & Gynecology; ATTEND Obstetrics & Gynecology
PROC: 10D00Z1 Extraction of Products of Conception, Low, Open Approach (ICD-10-PCS; principal; 2017-08-09 12:10)
DX: O32.8XX0 Maternal care for other malpresentation of fetus, not applicable or unspecified (principal); O99.42 Diseases of the circulatory system complicating childbirth; Z37.0 Single live birth; I49.9 Cardiac arrhythmia, unspecified; R05 Cough; Z87.891 Personal history of nicotine dependence; Z3A.39 39 weeks gestation of pregnancy; J45.909 Unspecified asthma, uncomplicated; O99.52 Diseases of the respiratory system complicating childbirth
CPT/HCPCS: 71020; 85025; 86850; 86900; 86901; 88307; 94640

== ENCOUNTER → 2018-07-29 | Outpatient (CLI) | payer MEDICAID ==
[2018-07-29 13:00] LABS: HCT 39.2 % (34.0-46.0); HGB 12.3 gm/dL (11.4-16.0); MCH 27.7 pg (25.0-35.0); MCHC 31.3 g/dL (31.0-37.0); MCV 88.5 fL (80.0-100.0); Mean Platelet Volume 6.4; Platelet Count 299 k/uL (150-450); RBC 4.42 m/uL (3.80-5.40); RDW 14.5 % (11.5-15.5); WBC 8.5 k/uL (3.8-10.6)
== END | disposition home or self-care (01) ==
LOC: LABWHC1 12:06
PROVIDERS: ATTEND Obstetrics & Gynecology
DX: Z34.81 Encounter for supervision of other normal pregnancy, first trimester (principal); Z3A.00 Weeks of gestation of pregnancy not specified
CPT/HCPCS: 36415; 82565; 82947; 85027; 86762; 86780; 86850; 86900; 86901; 87340

== ENCOUNTER → 2018-07-31 | Outpatient (CLI) | payer MEDICAID ==
--- NOTE | 2018-07-31 15:45 | US ---
EXAMINATION TYPE: Transabdominal DATE OF EXAM: 01/01/18 COMPARISON: NONE CLINICAL HISTORY: Z36 Confirm dates. EXAM PERFORMED: Transvaginal (TV) and Transabdominal (TA) EXAM MEASUREMENTS: GESTATIONAL AGE / DATING Physician Established: Not yet established Dates by LMP: ( 7 weeks/0 days) EDC: 03/19/2018 Dates by First Scan: No previous this is first scan Dates by Current Scan for: (6 weeks/0 days) EDC: 03/26/2018 MATERNAL ANATOMY Uterus: 11.6 x 5.1 x 6.9 cm Right Ovary: 2.9 x 1.8 x 3.1 cm Left Ovary: not identified Post CDS / Adnexa: wnl Presence of free fluid: none Presence of corpus luteal cyst: on right ovary measures 2.1 x 1.6 x 1.9 cm Presence of subchorionic bleed: none seen GESTATION / SURVEY CRL: 0.3 cm (5 weeks/6 days) MSD: 1.6 cm (6 weeks/0 days) Yolk Sac (normal less than 6mm): Heart Rate: 113 bpm Rhythm: Normal IUP: Viable IUP Date of LMP: 06/12/2018 IMPRESSION: Single viable IUP.
== END | disposition home or self-care (01) ==
LOC: RADUSWWP 14:51
PROVIDERS: ATTEND Obstetrics & Gynecology
DX: Z36.89 Encounter for other specified antenatal screening (principal)
CPT/HCPCS: 76801; 76817

== ENCOUNTER → 2018-10-31 | Outpatient (CLI) | payer MEDICAID ==
--- NOTE | 2018-10-31 15:26 | US ---
EXAMINATION TYPE: US OB anatomy transabd DATE OF EXAM: 10/31/2018 COMPARISON: NONE HISTORY: [id number] for dates second trimester TECHNIQUE: Transabdominal (TA) EXAM MEASUREMENTS: GESTATIONAL AGE / DATING Physician Established: (19 weeks/1 days) EDC: 03/23/19 Dates by LMP: (20 weeks/2 days) EDC: 03/19/19 Dates by First Scan: (19 weeks/1 days) EDC: 03/26/19 Dates by Current Scan for: (19 weeks/4 days) EDC: 03/23/19 SURVEY IUP: Single PLACENTA: Posterior PREVIA: Low Lying REYES: 12.29 cm CERVICAL LENGTH (transabdominal: norm > 3.0cm): 3.6 cm BIOMETRY PRESENTATION: Vertex BPD: 4.6 cm 19 weeks / 6 days HC: 16.8 cm 19 weeks / 3 days AC: 14.75 cm 20 weeks / 0 days FL: 3.1 cm 19 weeks / 4 days ESTIMATED WEIGHT IN GRAMS: 313 grams ESTIMATED WEIGHT IN LBS/OZ: 11 lbs. 2 oz. WEIGHT PERCENTAGE BASED ON ESTABLISHED DATE: 82 % HC/AC: 1.1 FL/AC: 20.9 HEART RATE: 141 bpm RHYTHM: Normal ANATOMY SEEN (within normal limits): * Lateral Vent (< 1 cm) 0.8 cm * Cisterna Magna (< 1.1 cm) 0.4 cm * Nuchal Fold (< 0.6 cm) 0.3cm * Cerebellum (varies with age) 1.7 cm Choroid Plexus (bilateral) Midline Falx Cavus Septi Pellucidi Four Chamber Heart Outflow tracts: LVOT/RVOT Stomach Situs Nose / Lips Diaphragm Kidneys (bilateral) Bladder Cord Insert Three Vessel Cord Longitudinal Spine Transverse Spine Arms (bilateral) Legs (bilateral) MATERNAL WALL MEASUREMENT: 3.7 cm from skin to anterior uterine wall (if exam limited due to body pelayo bitus). IMPRESSION: 1. Single intrauterine gestation estimated at 19 weeks 4 days gestation based on current ultrasound m easurements. This would have a calculated EDC of 03/23/2019. 2. Cardiac activity measures 141 bpm
== END | disposition home or self-care (01) ==
LOC: RADUSWWP 13:03
PROVIDERS: ATTEND Obstetrics & Gynecology
DX: O36.62X0 Maternal care for excessive fetal growth, second trimester, not applicable or unspecified (principal); Z3A.19 19 weeks gestation of pregnancy
CPT/HCPCS: 76811

== ENCOUNTER 2018-12-02 14:42 | Outpatient (CLI) | payer MEDICAID ==
[2018-12-02 15:27] VITALS: BP 115/66; PULSE 101; RESP 16; TEMP 97
--- NOTE | 2018-12-08 17:19 | P.MSEPDOC ---
Presenting Problems - Arrival Data Date of Arrival on Unit: 12/02/18 Time of Arrival on Unit: 14:45 Mode of Transport: Wheelchair - Complaint OB-Reason for Admission/Chief Complaint: Other Comment: almost passed out at work Medical History - Information : 3 Para: 2 Term: 2 : 0 Abortions: Spontaneous or Elective: 0 Number of Living Children: 2 - Gestational Age Gestational Age by DREW (wks/days): 23 Weeks and 1 Days - History Comment: no complications with this preg Review of Systems - Review of Systems Constitutional: No problems Breast: No problems ENT: No problems Cardiovascular: No problems Respiratory: No problems Gastrointestinal: No problems Genitourinary: No problems Musculoskeletal: No problems Neurological: No problems Skin: No problems Vital Signs - Temperature Temperature: 97.0 F Temperature Source: Temporal Artery Scan - Pulse Right Apical Pulse Rate: 101 Pulse Assessment Method: Automatic Cuff - Respirations Respiratory Rate: 16 Oxygen Delivery Method: Room Air - Blood Pressure Right Arm Blood Pressure: 115/66 Blood Pressure Mean: 82 Blood Pressure Source: Automatic Cuff Medical Screen Scoring (Pre) - Cervical Exam Dilation: Exam Deferred - Uterine Contractions Frequency: N/A - Maternal Vital Signs Maternal Temperature: N/A Maternal Blood Pressure: N/A Signs of Preeclampsia: N/A Maternal Respirations: N/A - Pain Assessment Pain Scale Used: Numeric (1 - 10) Pain Intensity: 0 - Maternal Trauma Maternal Trauma: N/A - Assessment Baseline FHR: 150 Heart Rate - NICHD Category: Category I (Normal) = 0 - Total Score Total Score (Pre): 0 - Level of Risk Level of Risk: Low (0-5) Physician Notification (Pre) - Physician Notified Physician Notified Date: 12/02/18 Physician Notified Time: 15:20 Physician/Practitioner Notifed:: edwar Spoke With: edwar New Order Received: (january discharge home) - Notification Comment Comment: to rest. states will keep appt for next week. if has conserns will see dr mauricio deutsch Disposition - Disposition OB Disposition: Discharge to home, Written follow up instructions reviewed Discharge Date: 12/02/18 Discharge Time: 15:30 I agree with the RN Medical Screening Exam: Yes Risk & Benefit of care provided described in d/c instruction: Yes Diagnosis: RELATED CONDITIONS, UNSP, UNSPECIFIED TRIMESTER
== END 2018-12-02 15:32 | disposition home or self-care (01) ==
LOC: FBPOP 14:42
PROVIDERS: ATTEND Obstetrics & Gynecology
DX: O26.92 Pregnancy related conditions, unspecified, second trimester (principal); Z3A.23 23 weeks gestation of pregnancy
CPT/HCPCS: 99213

== ENCOUNTER → 2018-12-06 | Outpatient (CLI) | payer MEDICAID ==
[2018-12-06 11:14] LABS: HCT 33.4 % (34.0-46.0); HGB 10.7 gm/dL (11.4-16.0); Hypochromasia Slight; MCH 29.2 pg (25.0-35.0); MCHC 31.9 g/dL (31.0-37.0); MCV 91.5 fL (80.0-100.0); Mean Platelet Volume 7.4; Platelet Count 198 k/uL (150-450); RBC 3.65 m/uL (3.80-5.40); RDW 15.4 % (11.5-15.5); WBC 7.5 k/uL (3.8-10.6)
== END | disposition home or self-care (01) ==
LOC: LABWHC1 09:15
PROVIDERS: ATTEND Obstetrics & Gynecology
DX: Z34.82 Encounter for supervision of other normal pregnancy, second trimester (principal)
CPT/HCPCS: 36415; 82950; 85027

== ENCOUNTER → 2018-12-16 | Outpatient (CLI) | payer MEDICAID ==
[2018-12-16 13:08] LABS: Glucose 3 Hour, Gest 112 mg/dL
== END | disposition home or self-care (01) ==
LOC: LABWHC1 08:01
PROVIDERS: ATTEND Obstetrics & Gynecology
DX: O99.810 Abnormal glucose complicating pregnancy (principal); Z3A.00 Weeks of gestation of pregnancy not specified
CPT/HCPCS: 36415; 82951; 82952

== ENCOUNTER → 2019-01-02 | Outpatient (CLI) | payer MEDICAID ==
--- NOTE | 2019-01-02 15:02 | US ---
EXAMINATION TYPE: US OB anatomy transabd Early third trimester. DATE OF EXAM: 01/02/2019 COMPARISON: 10/31/2018 second trimester ultrasound. HISTORY: O36.63XO LARGE FOR DATES Large for dates. TECHNIQUE: Transabdominal (TA) EXAM MEASUREMENTS: GESTATIONAL AGE / DATING Physician Established: (28 weeks/4 days) EDC: 03/23/2019 Dates by LMP: (29 weeks/1 days) EDC: 03/19/2019 Dates by First Scan: (28 weeks/1 days) EDC: 03/26/2019 Dates by Current Scan for: (28 weeks/5 days) EDC: 03/22/2019 SURVEY IUP: Single PLACENTA: Posterior PREVIA: No previa REYES: 17.54 cm Normal CERVICAL LENGTH (transabdominal: norm > 3.0cm): 3.7 cm CERVICAL LENGTH (transvaginal: norm> 2.5cm): Not performed (Supplemental transvaginal imaging performed to verify cervical length.) BIOMETRY PRESENTATION: Breech BPD: 7.11 cm 28 weeks / 4 days HC: 26.80 cm 29 weeks / 1 days AC: 24.99 cm 29 weeks / 1 days FL: 5.53 cm 29 weeks / 1 days ESTIMATED WEIGHT IN GRAMS: 1343 grams ESTIMATED WEIGHT IN LBS/OZ: 2 lbs. 15 oz. WEIGHT PERCENTAGE BASED ON ESTABLISHED DATE: 36.6 % HC/AC: 1.07 Normal FL/AC: 22.13 Normal HEART RATE: 138 bpm RHYTHM: Normal ANATOMY SEEN (within normal limits): * Lateral Vent (< 1 cm) 0.64 cm * Cisterna Magna (< 1.1 cm) 0.67 cm * Cerebellum (varies with age) 3.45 cm Choroid Plexus (bilateral) Cavus Septi Pellucidi Four Chamber Heart Stomach Situs Nose / Lips Diaphragm Kidneys (bilateral) Bladder Three Vessel Cord Longitudinal Spine Transverse Spine Arms (bilateral) Legs (bilateral) ANATOMY NOT SEEN: Outflow tracts: LVOT/RVOT Midline Falx Cord Insert * Nuchal Fold (< 0.6 cm) cm Single live intrauterine gestation is redemonstrated. Breech presentation to fetus is currently seen. No ultrasound evidence for placenta previa. No cervical thinning noted. Amniotic fluid index calcula joni upper limits of normal. biometry measurements are concordant and felt within normal limits. Detailed anatomical survey shows no suspicious abnormality, structures were better seen during secon d trimester ultrasound. IMPRESSION: As above
== END | disposition home or self-care (01) ==
LOC: RADUSWWP 10:51
PROVIDERS: ATTEND Obstetrics & Gynecology
DX: O32.1XX0 Maternal care for breech presentation, not applicable or unspecified (principal); Z3A.29 29 weeks gestation of pregnancy
CPT/HCPCS: 76811

== ENCOUNTER → 2019-02-19 | Outpatient (CLI) | payer MEDICAID ==
--- NOTE | 2019-02-19 09:38 | US ---
EXAMINATION TYPE: US OB >= 14 wk fetus DATE OF EXAM: 02/19/2019 COMPARISON: US CLINICAL HISTORY: O36.63X0 Large for Dates LGA TECHNIQUE: Transabdominal (TA) GESTATIONAL AGE / DATING Physician Established: (35 weeks/0 days) EDC: 03/26/2019 Dates by LMP: (36 weeks/0 days) EDC: 03/19/2019 Dates by First Scan: (35 weeks/0 days) EDC: 03/26/2019 Dates by Current Scan: (36 weeks/4 days) EDC: 03/15/2019 SURVEY IUP: Single PLACENTA: Posterior PREVIA: No Previa REYES: 15.1 cm Normal CERVICAL LENGTH (transabdominal: norm > 3.0cm): 4.0 cm BIOMETRY PRESENTATION: Vertex BPD: 8.9 cm 36 weeks / 1 days HC: 32.6 cm 37 weeks / 0 days AC: 32.5 cm 36 weeks / 3 days FL: 7.2 cm 36 weeks / 5 days ESTIMATED WEIGHT IN GRAMS: 2956 grams ESTIMATED WEIGHT IN LBS/OZ: 6 lbs. 8 oz. WEIGHT PERCENTAGE BASED ON ESTABLISHED DATES: 86.3% HC/AC: 1.0 Normal FL/AC: 22 Normal HEART RATE: 135 bpm RHYTHM: Normal Single, viable IUP/ Growth in 86th percentile Impression: Limited survey. Single viable intrauterine corresponding to ultrasound ag e 36 weeks 4 days with estimated date of delivery 03/15/2019 by today's exam.
== END | disposition home or self-care (01) ==
LOC: RADUSWWP 08:11
PROVIDERS: ATTEND Obstetrics & Gynecology
DX: O36.63X0 Maternal care for excessive fetal growth, third trimester, not applicable or unspecified (principal); Z3A.36 36 weeks gestation of pregnancy
CPT/HCPCS: 76805

== ENCOUNTER 2019-03-07 12:59 | Outpatient (CLI) | payer MEDICAID ==
[2019-03-07 13:44] VITALS: BP 131/73; PULSE 113; RESP 16; TEMP 98.6
--- NOTE | 2019-03-28 08:11 | P.MSEPDOC ---
Presenting Problems - Arrival Data Date of Arrival on Unit: 03/07/19 Time of Arrival on Unit: 12:59 Mode of Transport: Ambulatory - Complaint OB-Reason for Admission/Chief Complaint: Possible Onset of Labor Medical History - Information : 3 Para: 2 Term: 2 : 0 Abortions: Spontaneous or Elective: 0 Number of Living Children: 2 - Gestational Age Gestational Age by DREW (wks/days): 37 Weeks and 2 Days - History Complications: Prior Review of Systems - Review of Systems Constitutional: No problems Breast: No problems ENT: No problems Cardiovascular: No problems Respiratory: No problems Gastrointestinal: No problems Genitourinary: No problems Musculoskeletal: No problems Neurological: No problems Skin: No problems Vital Signs - Temperature Temperature: 98.6 F Temperature Source: Oral - Pulse Right Brachial Pulse Rate: 113 Pulse Assessment Method: Automatic Cuff - Respirations Respiratory Rate: 16 Oxygen Delivery Method: Room Air O2 Sat by Pulse Oximetry: 99 - Blood Pressure Right Arm Blood Pressure: 131/73 Blood Pressure Mean: 92 Blood Pressure Source: Automatic Cuff Medical Screen Scoring (Pre) - Cervical Exam Dilation: 0 cm = 0 - Uterine Contractions Frequency: > 5 minutes apart = 1 Duration: N/A Intensity: N/A - Maternal Vital Signs Maternal Temperature: N/A Maternal Blood Pressure: N/A Signs of Preeclampsia: N/A Maternal Respirations: N/A - Maternal Trauma Maternal Trauma: N/A - Assessment - Baby A Baseline FHR: 130 Heart Rate - NICHD Category: Category I (Normal) = 0 - Total Score - Baby A Total Score - Baby A: 1 - Total Score - Baby B Total Score - Baby B: 1 - Total Score - Baby C Total Score - Baby C: 1 - Level of Risk - Baby A Level of Risk - Baby A: Low (0-5) - Level of Risk - Baby B Level of Risk - Baby B: Low (0-5) - Level of Risk - Baby C Level of Risk - Baby C: Low (0-5) Physician Notification (Pre) - Physician Notified Physician Notified Date: 03/07/19 Physician Notified Time: 13:36 Physician/Practitioner Notifed:: Rg Spoke With: Rg New Order Received: Yes - Notification Comment Comment: discharge pt home Physician Notification (Post) - Physician Notified Physician Notified Date: 03/07/19 Physician Notified Time: 13:36 Physician/Practitioner Notified:: Rg Spoke With: Rg New Order Received: Yes Disposition - Disposition OB Disposition: Discharge to home Discharge Date: 03/07/19 Discharge Time: 14:10 I agree with the RN Medical Screening Exam: Yes Risk & Benefit of care provided described in d/c instruction: Yes Diagnosis: FALSE LABOR AT OR AFTER 37 COMPLETED WEEKS OF GESTATION
== END 2019-03-07 14:10 | disposition home or self-care (01) ==
LOC: FBPOP 12:59
PROVIDERS: ATTEND Obstetrics & Gynecology
DX: O47.1 False labor at or after 37 completed weeks of gestation (principal); Z3A.37 37 weeks gestation of pregnancy
CPT/HCPCS: 59025; 99213

== ENCOUNTER 2019-03-24 06:05 | Inpatient (IN) | payer MEDICAID ==
[2019-03-21 14:21] VITALS: BMI 37.2
--- NOTE | 2019-03-23 17:31 | P.HPOB ---
History of Present Illness H&P Date: 03/23/19 Chief Complaint: Repeat with bilateral partial salpingectomy This is a 28 y.o. female, 3, para 2, with an estimated date of confinement of 03/26/2019, estimated gestational age of 39-5/7 weeks, who presents for repeat section with bilateral tubal ligation for family planning. She admits to good movement. She denies any rupture of membranes. She has been experiencing frequent irregular contractions. labs: GC/chlamydia-negative Random glucose-86 Hemoglobin-12.3 Hepatitis B surface antigen-negative nonreactive Rubella-immune Syphilis antibody-nonreactive Blood type-O+ Antibody screen-negative Obstetrical ultrasound-normal anatomy One hour Glucola-148 Three-hour Glucola-within normal limits Group B streptococcus-negative Obstetrical history: . History of 1 vaginal delivery at term followed by a delivery for breech. Gynecologic history: No history of sexually transmitted diseases. Social history: She is . She works as a older adult social work specialist. Review of Systems Constitutional: Denies chills, Denies fever Eyes: denies blurred vision, denies pain Ears, nose, mouth and throat: Denies headache, Denies sore throat Cardiovascular: Denies chest pain, Denies shortness of breath Respiratory: Denies cough Gastrointestinal: Reports abdominal pain (Irregular contractions) Genitourinary: Reports pelvic pain, Reports Musculoskeletal: Reports low back pain Integumentary: Denies pruritus, Denies rash Neurological: Denies numbness, Denies weakness Past Medical History Past Medical History: Asthma, Skin Disorder Additional Past Medical History / Comment(s): eczema History of Any Multi-Drug Resistant Organisms: None Reported Past Surgical History: Section Additional Past Surgical History / Comment(s): [place] teeth Past Anesthesia/Blood Transfusion Reactions: No Reported Reaction Additional Past Anesthesia/Blood Transfusion Reaction / Comment(s): no hx blood transfusion Past Psychological History: No Psychological Hx Reported Smoking Status: Never smoker Past Alcohol Use History: None Reported Past Drug Use History: None Reported - Past Family History Mother Family Medical History: No Reported History Additional Family Medical History / Comment(s): grandmother hx CA Medications and Allergies Home Medications Medication Instructions Recorded Confirmed Type Pnv,Calcium 72/Iron/Folic Acid 1 tab PO HS 06/14/16 06/21/19 History [ Plus Tablet] Allergies Allergy/AdvReac Type Severity Reaction Status Date / Time No Known Allergies Allergy Verified 03/21/19 14:16 Exam Osteopathic Statement: *. No significant issues noted on an osteopathic structural exam other than those noted in the History and Physical/Consult. HEENT: Within normal limits Heart: Regular rate and rhythm Lungs: Clear to auscultation bilaterally Abdomen: Cervix: Fingertip/uneffaced/-3 heart tones: 140s by Doppler Extremities: Negative Homans Assessment and Plan (1) Previous delivery affecting Status: Acute Code(s): O34.219 - MATERNAL CARE FOR UNSP TYPE SCAR FROM PREVIOUS DEL SNOMED Code(s): 658710594 (2) Family planning Status: Acute Code(s): Z30.09 - ENCOUNTER FOR OTH GENERAL CNSL AND ADVICE ON CONTRACEPTION SNOMED Code(s): 056233756 (3) 39 weeks gestation of Status: Acute Code(s): Z3A.39 - 39 WEEKS GESTATION OF SNOMED Code(s): 07297549 Plan: Proceed with repeat low transverse section with bilateral partial salpingectomy. I have discussed the risks, benefits, and alternative therapies for the above- mentioned procedure and for both sedation/anesthesia as well as necessary blood products administration, if indicated, as they pertain to this patient. The patient has indicated her understanding and acceptance of the risks and procedures discussed.
[2019-03-24] MEDS ORDERED: LIDOCAINE 1% 20 ML VIAL (10MG/ML) FOR IV START INTRADERMA PRN (06:34)
[2019-03-24] MEDS ORDERED: CITRIC ACID-SODIUM CITRATE 15 ML CUP PO ONE (06:34)
[2019-03-24] MEDS ORDERED: ceFAZolin IN SWFI 2 GM/20 ML SYRINGE IVP ONE (06:34)
[2019-03-24] MEDS ORDERED: LACTATED RINGERS 1,000 ML IV ONE (06:34)
[2019-03-24 06:48] LABS: Anisocytosis Slight; Basophils % (A) 0 %; Eosinophils # (A) 0.1 k/uL (0-0.7); Eosinophils % (A) 2 %; HGB 11.6 gm/dL (11.4-16.0); Lymphocytes # (A) 1.8 k/uL (1.0-4.8); Lymphocytes % (A) 23 %; MCH 27.8 pg (25.0-35.0); MCHC 31.4 g/dL (31.0-37.0); MCV 88.5 fL (80.0-100.0); Mean Platelet Volume 7.4; Monocytes # (A) 0.3 k/uL (0-1.0); Monocytes % (A) 4 %; Neutrophils # (A) 5.3 k/uL (1.3-7.7); Neutrophils % (A) 69 %; Platelet Count 202 k/uL (150-450); RBC 4.19 m/uL (3.80-5.40); RDW 16.5 % (11.5-15.5); WBC 7.7 k/uL (3.8-10.6)
[2019-03-24] MEDS: LACTATED RINGERS 1,000 ML IV SCH ×5 (07:29→18:17)
[2019-03-24] MEDS ORDERED: KETOROLAC 30 MG/ML 1 ML VIAL ONE (07:52)
[2019-03-24] MEDS ORDERED: MORPHINE SULFATE (PF) 0.3 MG/0.3 ML SYR ONE (07:52)
[2019-03-24] MEDS ORDERED: OXYTOCIN 10 UNIT/ML 1 ML VIAL ONE (07:52)
[2019-03-24] MEDS ORDERED: LACTATED RINGERS 1,000 ML BAG IV ONE (07:52)
[2019-03-24] MEDS ORDERED: NALBUPHINE 10 MG/ML (1 ML AMP) ONE (07:52)
[2019-03-24] MEDS ORDERED: ePHEDrine SULFATE/0.9% NACL/PF 50 MG/5 ML SYRINGE IV ONE (07:52)
[2019-03-24] MEDS ORDERED: ONDANSETRON 4 MG/2 ML VIAL ONE (07:52)
--- NOTE | 2019-03-24 08:36 | P.OP ---
Date of Procedure: 03/24/19 Preoperative Diagnosis: 1. Intrauterine at 39-5/7 weeks. 2. History of previous section. Postoperative Diagnosis: Same Procedure(s) Performed: Repeat low transverse section Anesthesia: spinal (Duramorph) Surgeon: Delores Han Recruitment And Outreach Assistant #1: Henrik Walker Estimated Blood Loss (ml): 500 Pathology: none sent Condition: stable Disposition: floor Indications for Procedure: This is a 28-year-old female 3 para 2 at 39-5/7 weeks who presents for scheduled repeat section. She had originally asked for a tubal ligation at the same time. As of this morning, she has declined tubal ligation. Her plans to get a vasectomy. I have discussed the risks, benefits, and alternative therapies for the above- mentioned procedure and for both sedation/anesthesia as well as necessary blood products administration, if indicated, as they pertain to this patient. The patient has indicated her understanding and acceptance of the risks and procedures discussed. Operative Findings: A viable male infant is noted in the vertex presentation with scores of 9 at 1 minute and 9 at 5 minutes and infant weight of 8 lbs. 8 oz. Nuchal cord times one was noted. Thin meconium was also noted. Normal uterus tubes and ovaries are noted. Description of Procedure: The patient is taken to the operating room where she is placed in the dorsal supine position with leftward tilt after spinal Duramorph anesthesia is given. She is prepped and draped in the normal sterile fashion. Skin was tested and found to be adequately anesthetized. A Pfannenstiel skin incision was made with a scalpel through the previous laparotomy scar. A second knife was used to carry the incision down to the underlying layer of fascia. The fascia was nicked in the midline with a scalpel and then extended laterally bilaterally with Mars scissors. The anterior lip of the fascia was grasped with 2 Abbie clamps and then dissected off the underlying rectus muscle in the midline with Mars scissors. The inferior aspect of the fascial incision was grasped with 2 Abbie clamps and dissected off the underlying rectus muscle and the midline with Mars scissors. Next the peritoneum layer was tented up with 2 hemostats and then entered sharply with the scalpel. The incision is extended superiorly and inferiorly with Metzenbaum scissors. Next a DeLee retractor is placed. The vesicouterine peritoneum is entered sharply with Metzenbaum scissors and extended laterally bilaterally with Metzenbaum scissors and then the bladder flap is pushed inferiorly. The lower uterine segment is incised in transverse fashion with the scalpel and then bluntly entered with a hemostat. Thin meconium fluid is noted. The incision was then extended laterally bilaterally with 2 fingers. Next the 's head is delivered through the incision. Nose and mouth are bulb suctioned. Nuchal cord times one was reduced around the 's head. The remainder of the is easily delivered and placed on mother's abdomen. Cord is clamped and cut. is taken to warmer by nursing staff. Uterine fundus is gently massaged and placenta is delivered manually. Uterus is exteriorized and cleared of all clots and debris. Uterine incision is closed with 0 Vicryl suture in a running locked fashion. A second layer of 0 Vicryl suture is used in a running fashion for hemostasis. Once a dequate hemostasis as assured, the vesicouterine peritoneum is reapproximated with 2-0 Vicryl suture in a running fashion. Posterior cul-de-sac is suctioned of all clots and debris. Uterus is returned to the abdomen. Incision is noted to be hemostatic. Peritoneal layer is closed with 0 Vicryl suture in a running fashion. Muscle layer is reapproximated with 0 Vicryl suture in interrupted fashion. Fascia layer is then closed with 0 PDS suture with 2 sutures meeting in the midline and the knots buried in either side and in the midline. The subcutaneous tissue was then closed with 2-0 Vicryl suture. Skin layer was then closed with doreen. All sponge and needle counts are correct. The patient is taken to recovery room in stable condition.
[2019-03-24] MEDS ORDERED: NALOXONE 0.4 MG/ML 1 ML VIAL IV PRN (09:22)
[2019-03-24] MEDS ORDERED: ACETAMINOPHEN TAB 325 MG TAB PO PRN (09:22)
[2019-03-24] MEDS ORDERED: diphenhydrAMINE 25 MG CAP PO PRN (09:22)
[2019-03-24] MEDS ORDERED: OXYTOCIN 20 UNITS/1000 ML NS 1,000 ML IV SCH (09:22)
[2019-03-24] MEDS ORDERED: LANOLIN CREAM 5 GM TUBE TOPICAL PRN (09:22)
[2019-03-24] MEDS ORDERED: KETOROLAC 30 MG/ML 1 ML VIAL IVP PRN (09:22)
[2019-03-24] MEDS ORDERED: diphenhydrAMINE 50 MG/ML 1 ML VIAL IVP PRN ×2 (09:22)
[2019-03-24] MEDS ORDERED: diphenhydrAMINE 50 MG CAP PO PRN (09:22)
[2019-03-24] MEDS ORDERED: METOCLOPRAMIDE 5 MG/ML 2 ML VIAL IVP PRN (09:22)
[2019-03-24] MEDS ORDERED: HYDROcodone/APAP 7.5-325MG 1 EACH TAB PO PRN (09:22)
[2019-03-24] MEDS ORDERED: ONDANSETRON 4 MG/2 ML VIAL IVP PRN (09:22)
[2019-03-24] MEDS ORDERED: ZOLPIDEM 5 MG TAB PO PRN (09:22)
[2019-03-24] MEDS ORDERED: SIMETHICONE 80 MG CHEWABLE PO PRN (09:22)
[2019-03-24] MEDS: SENNOSIDES-DOCUSATE SODIUM 1 EACH TAB PO SCH ×2 (11:20→22:30)
[2019-03-24 22:04] VITALS: RESP 16
[2019-03-25] MEDS: IBUPROFEN 600 MG TAB PO PRN ×4 (00:45→20:42)
--- NOTE | 2019-03-25 05:57 | P.PNOBGPC ---
Subjective - Subjective Patient reports: Reports appetite normal, Reports voiding normally, Reports pain well controlled, Reports ambulating normally : doing well Objective - Vital Signs Latest vital signs: Vital Signs Temp Pulse Resp BP Pulse Ox 03/25/19 04:00 98.1 F 76 16 107/49 99 03/25/19 00:00 98.1 F 77 16 120/59 98 03/24/19 20:00 98.0 F 74 16 116/57 99 03/24/19 16:00 97.7 F 75 18 122/69 98 03/24/19 12:30 97 03/24/19 10:40 65 18 124/60 98 03/24/19 10:10 97.7 F 87 16 121/62 97 03/24/19 09:40 66 18 133/76 96 03/24/19 09:23 97.4 F L 79 18 128/79 97 03/24/19 09:22 97 03/24/19 09:10 97.7 F 77 18 122/61 97 03/24/19 08:55 97.1 F L 75 18 132/60 97 03/24/19 08:40 97.6 F 76 18 130/76 98 03/24/19 06:27 96.4 F L 106 H 18 120/67 98 Intake and Output 03/24/19 03/24/19 03/25/19 14:59 22:59 06:59 Output Total 100 350 800 Balance -100 -350 -800 Output: Urine 100 350 800 Other: # Voids 1 1 - Exam Lungs: bilateral: normal Chest: Normal S1, Normal S2 Extremities: Present: normal Abdomen: Present: normal appearance, soft. Absent: distention, tenderness Incision: Present: normal, dry, intact Uterus: Present: normal, firm - Labs Labs: Abnormal Lab Results - Last 24 Hours (Table) 03/24/19 Range/Units 06:30 RDW 16.5 H (11.5-15.5) % Assessment and Plan Assessment: Postoperative day #1. Patient is resting without complaints. Vital signs are stable and she is afebrile. Her incision is intact and dry. I impression is a normal postoperative course. Plan is to check CBC, encourage ambulation, allow the patient to shower, continue regular diet. (1) delivery delivered Current Visit: No Status: Acute Code(s): O82 - ENCOUNTER FOR DELIVERY WITHOUT INDICATION SNOMED Code(s): 480086925
[2019-03-25 06:59] LABS: Anisocytosis Slight; Basophils % (A) 0 %; Eosinophils # (A) 0.2 k/uL (0-0.7); Eosinophils % (A) 2 %; HCT 32.6 % (34.0-46.0); HGB 10.2 gm/dL (11.4-16.0); Lymphocytes # (A) 1.3 k/uL (1.0-4.8); Lymphocytes % (A) 16 %; MCH 27.9 pg (25.0-35.0); MCHC 31.2 g/dL (31.0-37.0); MCV 89.4 fL (80.0-100.0); Mean Platelet Volume 7.1; Monocytes # (A) 0.3 k/uL (0-1.0); Monocytes % (A) 4 %; Neutrophils # (A) 6.4 k/uL (1.3-7.7); Neutrophils % (A) 77 %; Platelet Count 163 k/uL (150-450); RBC 3.64 m/uL (3.80-5.40); RDW 16.4 % (11.5-15.5); WBC 8.3 k/uL (3.8-10.6)
[2019-03-25] MEDS: SENNOSIDES-DOCUSATE SODIUM 1 EACH TAB PO SCH ×2 (07:36→20:42)
--- NOTE | 2019-03-25 12:08 | P.PN ---
Progress Note - Text Anesthesia POD 1. Patient is status post section under spinal anesthesia with intra-thecal preservative free morphine 300 g. Mild pruritus, excellent post-op analgesia, and no headache or other complication.
[2019-03-25] MEDS: HYDROcodone/APAP 5-325MG 1 EACH TAB PO PRN ×3 (12:43→22:37)
[2019-03-25 15:52] VITALS: TEMP 98.1
[2019-03-26] MEDS: HYDROcodone/APAP 5-325MG 1 EACH TAB PO PRN (06:29)
--- NOTE | 2019-03-26 06:50 | P.PNOBGPC ---
Subjective - Subjective Patient reports: Reports appetite normal, Reports voiding normally, Reports pain well controlled, Reports ambulating normally : doing well Objective - Vital Signs Latest vital signs: Vital Signs Temp Pulse Resp BP Pulse Ox 03/25/19 15:50 98.1 F 77 16 119/57 03/25/19 09:22 100 03/25/19 08:00 97.9 F 90 16 118/75 100 Intake and Output 03/25/19 03/25/19 03/26/19 14:59 22:59 06:59 Other: # Voids 2 2 1 - Exam Lungs: bilateral: normal Chest: Normal S1, Normal S2 Extremities: Present: normal Abdomen: Present: normal appearance, soft. Absent: distention, tenderness Incision: Present: normal, dry, intact Uterus: Present: normal, firm - Labs Labs: Abnormal Lab Results - Last 24 Hours (Table) 03/25/19 Range/Units 06:47 RBC 3.64 L (3.80-5.40) m/uL Hgb 10.2 L (11.4-16.0) gm/dL Hct 32.6 L (34.0-46.0) % RDW 16.4 H (11.5-15.5) % Assessment and Plan Assessment: Post operative day #2. Patient is resting without complaints. Vital signs are stable she's afebrile. Uterus is firm nontender and she is having normal lochia. Incision is intact and dry. Patient would like to go home today. CBC yesterday was normal. She is ambulating and urinating without difficulty and felt be stable for discharge home. Plan is to continue routine care discharge home later today. (1) delivery delivered Current Visit: No Status: Acute Code(s): O82 - ENCOUNTER FOR DELIVERY WITHOUT INDICATION SNOMED Code(s): 436659782
--- NOTE | 2019-03-26 06:58 | P.DS ---
Providers Date of admission: 03/24/19 06:05 Expected date of discharge: 03/26/19 Attending physician: Delores Han Primary care physician: Stated None - Discharge Diagnosis(es) (1) delivery delivered Current Visit: No Status: Acute Hospital Course: Please see dictated H&P per Dr. Han on this patient's admission. Brief summary this is a 28-year-old multiparous patient is admitted for elective repeat section. Patient undergoes above-named surgery for viable male infant. Please see dictated operative note. Postoperative patient does well and on postoperative #2 silk to be stable for discharge home follow up with Dr. Han in 1 week. Procedures: Repeat low transverse section Patient Condition at Discharge: Good Plan - Discharge Summary Discharge Rx Participant: No New Discharge Prescriptions: New Ibuprofen [Motrin] 600 mg PO Q6HR PRN #40 tab PRN Reason: Mild Pain Or Fever >= 100.5 HYDROcodone/APAP 5-325MG [[place] 5-325] 1 each PO Q4HR PRN #18 tab PRN Reason: Moderate Pain No Action Pnv,Calcium 72/Iron/Folic Acid [ Plus Tablet] 1 tab PO HS Discharge Medication List Pnv,Calcium 72/Iron/Folic Acid [ Plus Tablet] 1 tab PO HS 03/14/16 [History] HYDROcodone/APAP 5-325MG [[place] 5-325] 1 each PO Q4HR PRN #18 tab 03/26/19 [Rx] Ibuprofen [Motrin] 600 mg PO Q6HR PRN #40 tab 03/26/19 [Rx] Follow up Appointment(s)/Referral(s): Delores Han DO [Doctor of Osteopathic Medicine] - 04/02/19 11:30 am (Patient also has a visit with Dr. Han on May 06 at 11:30 AM.) Patient Instructions/Handouts: (DC) Activity/Diet/Wound Care/Special Instructions: No strenuous activities or heavy lifting for 6 weeks. No intercourse or anything per vagina for 6 weeks. Please call if any fever, chills, excessive vaginal bleeding, and/or abdominal pain. Discharge Disposition: HOME SELF-CARE
[2019-03-26] MEDS: SENNOSIDES-DOCUSATE SODIUM 1 EACH TAB PO SCH (08:50)
[2019-03-26 09:01] VITALS: BP 113/64; PULSE 89
[2019-03-26] MEDS: IBUPROFEN 600 MG TAB PO PRN (11:26)
== END 2019-03-26 11:33 | disposition home or self-care (01) | DRG 788 ==
LOC: 4FBP 06:05
PROVIDERS: ADMIT Obstetrics & Gynecology; ATTEND Obstetrics & Gynecology
PROC: 10D00Z1 Extraction of Products of Conception, Low, Open Approach (ICD-10-PCS; principal; 2019-03-24 08:00)
DX: O34.211 Maternal care for low transverse scar from previous cesarean delivery (principal); N85.8 Other specified noninflammatory disorders of uterus; Z3A.39 39 weeks gestation of pregnancy; Z37.0 Single live birth; J45.909 Unspecified asthma, uncomplicated; O69.81X0 Labor and delivery complicated by cord around neck, without compression, not applicable or unspecified; O77.0 Labor and delivery complicated by meconium in amniotic fluid; O99.52 Diseases of the respiratory system complicating childbirth; L30.9 Dermatitis, unspecified
CPT/HCPCS: 85025; 86850; 86900; 86901

== ENCOUNTER → 2019-12-12 | Outpatient (CLI) | payer BC ==
--- NOTE | 2019-12-12 08:06 | US ---
EXAMINATION TYPE: US gallbladder DATE OF EXAM: 12/12/2019 COMPARISON: NONE CLINICAL HISTORY: R10.11 R upper quad pain. Pain and nausea EXAM MEASUREMENTS: Liver Length: 16.3 cm Gallbladder Wall: .2 cm CBD: .4 cm Right Kidney: 11.5 x 3.7 x 4.3 cm Pancreas: wnl Liver: wnl Gallbladder: wnl Evidence for sonographic Best's sign: No CBD: wnl Right Kidney: wnl IMPRESSION: No sonographic evidence of cholelithiasis nor acute cholecystitis.
== END | disposition home or self-care (01) ==
LOC: RADUSWWP 07:38
PROVIDERS: ATTEND Family Medicine
DX: R10.11 Right upper quadrant pain (principal)
CPT/HCPCS: 76705

== ENCOUNTER → 2021-01-18 | Outpatient (CLI) | payer MEDICAID ==
[2021-01-18 22:52] LABS: HCT 41.7 % (37.2-46.3); HGB 13.3 g/dL (12.0-15.0); MCH 31.1 pg (27.0-32.0); MCHC 31.9 g/dL (32.0-37.0); MCV 97.7 fL (80.0-97.0); Mean Platelet Volume 10.7 fL (9.5-12.2); Platelet Count 293 X 10*3/uL (140-440); RBC 4.27 X 10*6/uL (4.10-5.20); RDW 13.1 % (11.5-14.5); WBC 7.13 X 10*3/uL (4.50-10.00)
== END | disposition home or self-care (01) ==
LOC: LABWHC1 15:52
PROVIDERS: ATTEND Plastic Surgery
DX: Z01.812 Encounter for preprocedural laboratory examination (principal)
CPT/HCPCS: 36415; 85027

== ENCOUNTER → 2023-04-17 | Outpatient (CLI) | payer MEDICAID ==
--- NOTE | 2023-04-18 10:51 | US ---
EXAMINATION TYPE: US pelvic complete DATE OF EXAM: 04/17/2023 COMPARISON: NONE CLINICAL INDICATION: Female, 32 years old with history of N92.3 OVULATION BLEEDING; Irregular heavy p ainful periods x 4 months TECHNIQUE: . Transabdominal sonographic images of the pelvis were acquired. Date of LMP: 03/25/2023 EXAM MEASUREMENTS: Uterus: 12.3 x 3.7 x 5.0 cm Endometrial Stripe: 0.9 cm Right Ovary: 3.1 x 1.8 x 2.4 cm Left Ovary: 2.0 x 1.0 x 2.0 cm 1. Uterus: anteverted, enlarged in length 2. Endometrium: appears wnl 3. Right Ovary: wnl 4. Left Ovary: wnl 5. Bilateral Adnexa: wnl 6. Posterior cul-de-sac: wnl Bladder is sonolucent. The posterior wall is normal. IMPRESSION: 1. Unremarkable pelvic ultrasound
== END | disposition home or self-care (01) ==
LOC: RADUSWWP 16:12
PROVIDERS: ATTEND Obstetrics & Gynecology
DX: N92.3 Ovulation bleeding (principal)
CPT/HCPCS: 76856

== ENCOUNTER → 2023-07-02 | Outpatient (CLI) | payer MEDICAID ==
[2023-07-02 22:12] LABS: Basophils # (A) 0.03 X 10*3/uL (0.00-0.10); Basophils % (A) 0.5 %; Eosinophils % (A) 1.7 %; HCT 39.8 % (37.2-46.3); HGB 12.3 d/dL (12.0-15.0); Lymphocytes # (A) 2.41 X 10*3/uL (0.90-5.00); Lymphocytes % (A) 40.4 %; MCH 29.9 pg (27.0-32.0); MCHC 30.9 d/dL (32.0-37.0); MCV 96.8 FL (80.0-97.0); Mean Platelet Volume 10.2 FL (9.5-12.2); Monocytes # (A) 0.36 X 10*3/uL (0.20-1.00); NRBC Per 100 WBC 0 X 10*3/uL (0.00-0.01); Neutrophils # (A) 3.05 X 10*3/uL (1.80-7.70); Neutrophils % (A) 51.1 %; Platelet Count 301 X 10*3/uL (140-440); RBC 4.11 X 10*6/uL (4.10-5.20); RDW 13.9 % (11.5-14.5); WBC 5.97 X 10*3/uL (4.50-10.00)
== END | disposition home or self-care (01) ==
LOC: LABPAT 16:17
PROVIDERS: ATTEND Obstetrics & Gynecology
DX: Z01.812 Encounter for preprocedural laboratory examination (principal)
CPT/HCPCS: 85025

== ENCOUNTER 2023-07-09 05:44 | Day surgery (SDC) | payer MEDICAID ==
--- NOTE | 2023-07-08 10:39 | P.HPOB ---
History of Present Illness H&P Date: 07/08/23 Chief Complaint: Menorrhagia with regular cycle This is a 32 y.o. female, 3, para 3, who presents for dilatation and curettage with hysteroscopy and Novasure endometrial ablation due to menorrhagia with regular cycle. She complains of menses occurring regularly, lasting 7 days, but heavy. In addition she's having spotting lasting almost 2 weeks after her menses. Pelvic ultrasound showed uterus measuring 12.3 x 3.7 x 5 cm, with endometrium measuring 9 mm, both ovaries are normal. Her had a vasectomy. She would like definitive surgical treatment. 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 Works as a social welfare clerk, [employer]. Review of Systems Constitutional: Reports weight loss, Denies chills, Denies fever Eyes: denies blurred vision, denies pain Ears, nose, mouth and throat: Denies headache, Denies sore throat Cardiovascular: Denies chest pain, Denies shortness of breath Respiratory: Denies cough Gastrointestinal: Reports bloating, Reports constipation, Reports diarrhea, Reports heartburn Genitourinary: Reports menorrhagia, Reports stress incontinence (occ) Menstruation: Reports menses 8 or > days, Reports period heavy Musculoskeletal: Reports myalgias Integumentary: Denies pruritus, Denies rash Neurological: Denies numbness, Denies weakness Psychiatric: Reports anxiety, Reports difficulty concentrating, Denies depression Endocrine: Denies fatigue Past Medical History Past Medical History: Asthma, GERD/Reflux Additional Past Medical History / Comment(s): eczema- no issues, bleeding longer during menstrual cycle. bladder leakage and urgency with some infections. History of Any Multi-Drug Resistant Organisms: None Reported Past Surgical History: Section Additional Past Surgical History / Comment(s): [place] teeth, cosmetic surgery breast, and abdomen. Past Anesthesia/Blood Transfusion Reactions: No Reported Reaction Additional Past Anesthesia/Blood Transfusion Reaction / Comment(s): no hx blood transfusion Smoking Status: Never smoker Past Alcohol Use History: Occasional Past Drug Use History: None Reported - Past Family History Mother Family Medical History: Cancer (Breast) Additional Family Medical History / Comment(s): grandmother hx CA Father Family Medical History: No Reported History Medications and Allergies Home Medications Medication Instructions Recorded Confirmed Type No Known Home Medications 07/03/23 07/09/23 History Allergies Allergy/AdvReac Type Severity Reaction Status Date / Time No Known Allergies Allergy Verified 07/09/23 06:18 Exam Osteopathic Statement: *. No significant issues noted on an osteopathic structural exam other than those noted in the History and Physical/Consult. HEENT: within normal limits Heart: regular rate and rhythm Lungs: clear to auscultation bilaterally Abdomen: soft, non-tender Pelvic: uterus retroverted, non-tender, no adnexal masses or tenderness Extremities: neg. Sheila's Assessment and Plan (1) Menorrhagia with regular cycle Current Visit: No Status: Acute Code(s): N92.0 - EXCESSIVE AND FREQUENT MENSTRUATION WITH REGULAR CYCLE SNOMED Code(s): 102261812 Plan: Proceed with dilatation and curettage with hysteroscopy and Novasure endometrial ablation I have discussed the risks, benefits, and alternative therapies for the above- mentioned procedure and for both sedation/anesthesia as well as necessary blood products administration, if indicated, as they pertain to this patient. The patient has indicated her understanding and acceptance of the risks and procedures discussed.
[~2023-07-09 05:44] MED LIST: Pre Op ABX Message 1 EACH MISC MISCELLANE ONE
[2023-07-09] MEDS ORDERED: LACTATED RINGERS 1,000 ML IV SCH (06:01)
[2023-07-09] MEDS ORDERED: HYDROmorphone 0.5 MG/0.5 ML SYRINGE IVP PRN (06:01)
[2023-07-09] MEDS ORDERED: ONDANSETRON 4 MG/2 ML VIAL IVP ONE (06:01)
[2023-07-09] MEDS ORDERED: LIDOCAINE 1% (10MG/ML) FOR IV START INTRADERMA PRN (06:01)
[2023-07-09] MEDS ORDERED: METOCLOPRAMIDE 5 MG/ML 2 ML VIAL IVP PRN (06:01)
[2023-07-09] MEDS ORDERED: DEXAMETHASONE SOD PHOSPHATE 4 MG/ML 1 ML VIAL IV ONE (06:01)
[2023-07-09] MEDS ORDERED: SCOPOLAMINE 1 MG/72 HR PATCH TRANSDERM ONE (06:32)
[2023-07-09] MEDS ORDERED: PROPOFOL 10 MG/ML 20 ML VIAL IV ONE (07:04)
[2023-07-09] MEDS ORDERED: KETOROLAC 30 MG/ML 1 ML VIAL ONE (07:04)
[2023-07-09] MEDS ORDERED: MIDAZOLAM 2 MG/2 ML VIAL ONE (07:04)
[2023-07-09] MEDS ORDERED: LIDOCAINE 1% INJ 10MG/ML (20 ML MDV) ONE (07:04)
[2023-07-09] MEDS ORDERED: fentaNYL (PF) 50 MCG/ML 2 ML AMP ONE (07:04)
--- NOTE | 2023-07-09 07:37 | P.OP ---
Date of Procedure: 07/09/23 Preoperative Diagnosis: Menorrhagia with regular cycle Postoperative Diagnosis: Same Procedure(s) Performed: Dilation and curettage with hysteroscopy Anesthesia: other (LMA general) Surgeon: Delores Han Estimated Blood Loss (ml): 5 Pathology: other (Endometrial curettings) Condition: stable Disposition: same day Indications for Procedure: This is a 32 y.o. female, 3, para 3, who presents for dilatation and curettage with hysteroscopy and Novasure endometrial ablation due to menorrhagia with regular cycle. She complains of menses occurring regularly, lasting 7 days, but heavy. In addition she's having spotting lasting almost 2 weeks after her menses. Pelvic ultrasound showed uterus measuring 12.3 x 3.7 x 5 cm, with endometrium measuring 9 mm, both ovaries are normal. Her had a vasectomy. She would like definitive surgical treatment. Operative Findings: Uterus is midposition, sounded to 11-1/2 cm. Cervix is sounded to 4 cm. Upon hysteroscopy, a dyssynchronous endometrial pattern was noted. Both tubal ostia are visualized. A moderate to large amount of endometrial curettings are obtained. Description of Procedure: The patient is taken to the operating room. She is placed in the dorsal lithotomy position after general anesthesia was given. She is prepped and draped in the normal sterile fashion. Bladder is drained with a catheter and then removed. Pelvic exam is performed under anesthesia. Uterus is found to be mid position with no adnexal masses. She is placed in slight Trendelenburg position. A right angle retractor is used to visualize the cervix. The anterior lip of the cervix is grasped with a single-tooth tenaculum. Cervix is sounded to 4 cm. Uterus is sounded to 11.5 cm. Cervix is gently dilated with Rae dilators until a hysteroscope could be passed. Hysteroscopy is performed using normal saline. The above noted findings are noted. Next a polyp forceps is introduced. A minimal amounts of tissue was obtained. Next medium-sized size sharp curette was placed. A moderate to large amount of endometrial curettings were obtained. Next NovaSure array was inserted into the endometrial cavity. Length was set at 6.5 cm and width was determined to be 4.2 cm. Next cavity assessment was completed and passed on the first try. Next NovaSure array was fired at 150 W for 62 seconds. Next the array was removed, inspected and then discarded. Next the hysteroscope was reinserted. Uniform charring was noted. Pictures were taken. Hysteroscope was removed. Single-tooth tenaculum was removed from the anterior lip of the cervix. Minimal bleeding was noted. All other instruments removed from the vagina. Sponge counts were correct. Patient is taken to recovery room in stable condition.
[2023-07-09 08:03] VITALS: RESP 16; TEMP 97.6
[2023-07-09] MEDS ORDERED: ACETAMINOPHEN TAB 500 MG TAB ONE (08:34)
[2023-07-09] MEDS ORDERED: ACETAMINOPHEN TAB 500 MG TAB PO ONE (08:37)
[2023-07-09 09:04] VITALS: BP 130/84; PULSE 63
== END 2023-07-09 09:12 | disposition home or self-care (01) ==
LOC: OR 05:44
PROVIDERS: ATTEND Obstetrics & Gynecology
DX: N92.1 Excessive and frequent menstruation with irregular cycle (principal); N92.0 Excessive and frequent menstruation with regular cycle; J45.909 Unspecified asthma, uncomplicated; K21.9 Gastro-esophageal reflux disease without esophagitis; Z98.891 History of uterine scar from previous surgery; Z86.59 Personal history of other mental and behavioral disorders; Z79.899 Other long term (current) drug therapy
CPT/HCPCS: 81025; 88305; 58563; J2250; J1100; J2405; J2001; J3010; J1885; J2704

== ENCOUNTER → 2024-08-14 | Outpatient (CLI) | payer MEDICAID ==
[2024-08-14 15:58] LABS: Basophils # (A) 0.03 X 10*3/uL (0.00-0.10); Basophils % (A) 0.5 %; Eosinophils # (A) 0.06 X 10*3/uL (0.04-0.35); HCT 39.6 % (37.2-46.3); HGB 12.7 g/dL (12.0-15.0); Lymphocytes # (A) 1.42 X 10*3/uL (0.90-5.00); Lymphocytes % (A) 23.3 %; MCH 30.9 pg (27.0-32.0); MCHC 32.1 g/dL (32.0-37.0); MCV 96.4 FL (80.0-97.0); Monocytes # (A) 0.37 X 10*3/uL (0.20-1.00); Monocytes % (A) 6.1 %; NRBC Per 100 WBC 0 X 10*3/uL (0.00-0.01); Neutrophils % (A) 68.8 %; Platelet Count 238 X 10*3/uL (140-440); RBC 4.11 X 10*6/uL (4.10-5.20); RDW 13.2 % (11.5-14.5)
[2024-08-14 16:16] LABS: BUN/Creat Ratio 15.88 Ratio (12.00-20.00); Blood Urea Nitrogen 12.7 mg/dL (9.0-27.0); Chloride 103 mmol/L (96-109); Chol/HDL Ratio 4.01 Ratio; Glucose 96 mg/dL (70-110); LDL Cholesterol,Calculated 116.9 mg/dL (0.0-131.0); Potassium 4.3 mmol/L (3.5-5.5); Sodium 139 mmol/L (135-145)
[2024-08-14 16:17] LABS: ALT 12 U/L (8-44); AST 16 U/L (13-35); Albumin 4.6 g/dL (3.8-4.9); Alkaline Phosphatase 82 U/L (41-126); Calcium 9.6 mg/dL (8.7-10.3); Carbon Dioxide 25.4 mmol/L (21.6-31.8); Globulin 2.7 g/dL (1.6-3.3); Total Bilirubin 0.4 mg/dL (0.3-1.2); Total Protein 7.3 g/dL (6.2-8.2)
[2024-08-14 22:55] LABS: Urine Alcohol Negative (Negative); Urine Barbiturate Negative (Negative); Urine Cocaine Negative (Negative); Urine Methadone Negative (Negative); Urine Opiates Negative (Negative); Urine Phencyclidine Negative (Negative)
== END | disposition home or self-care (01) ==
LOC: LABWHC1 09:56
PROVIDERS: ATTEND Family Medicine
DX: Z13.228 Encounter for screening for other metabolic disorders (principal)
CPT/HCPCS: 36415; 80053; 80061; 80306; 82306; 83036; 84443; 85025

== ENCOUNTER → 2024-12-30 | Day surgery (SDC) | payer MEDICAID ==
[2024-12-26 10:23] VITALS: BMI 30.1
[~2024-12-30] MED LIST changes: +PROPOFOL 10 MG/ML 20 ML VIAL IV ONE; -Pre Op ABX Message 1 EACH MISC MISCELLANE ONE
[2024-12-30 09:19] VITALS: RESP 16; TEMP 97.8
[2024-12-30] MEDS: IV FLUID CONTINUATION 1,000 ML IV ONE (09:23)
[2024-12-30] MEDS: LACTATED RINGERS 1,000 ML IV SCH (09:32)
[2024-12-30] MEDS: LIDOCAINE 1% (10MG/ML) FOR IV START INTRADERMA PRN (09:32)
--- NOTE | 2024-12-30 10:20 | P.PCN ---
Date of Procedure: 12/30/24 Procedure(s) Performed: PREOPERATIVE DIAGNOSIS: Rectal bleeding POSTOPERATIVE DIAGNOSIS: Prominent hemorrhoid with skin tag right posterior lateral position PROCEDURE: Colonoscopy with anoscopy ANESTHESIA: MAC SURGEON: Roland Delgadillo M.D. SPECIMENS: None ENDOSCOPIC PROCEDURE: The patient was placed on the endoscopy table in the left decubitus position. The Olympus colonoscope was inserted into the anus and passed under direct visualization to the base of the cecum. The appendiceal orifice was visualized. From that point the scope was slowly withdrawn inspecting all surfaces carefully. There were no neoplastic inflammatory or polypoid lesions throughout the cecum, ascending, transverse, descending, sigmoid and rectum. Retroflexion at the anus was normal. There was no visible diverticulosis noted. The endoscope was then utilized. The patient had a visible external hemorrhoid with prominent external hemorrhoidal skin tag in the right posterior position. There was mild inflammation there. No thrombosis was seen. No fissures or fistulas were noted. The patient was taken to the [facility] room in stable condition per anesthesia guidelines. RECOMMENDATIONS: Resume diet. Will discuss options of hemorrhoidectomy with patient.
[2024-12-30 11:32] VITALS: BP 110/72; PULSE 60
== END ==
LOC: ORWHC2ENDO 08:53
PROVIDERS: ATTEND Surgery
DX: K62.5 Hemorrhage of anus and rectum (principal); K64.4 Residual hemorrhoidal skin tags; J45.909 Unspecified asthma, uncomplicated; F17.200 Nicotine dependence, unspecified, uncomplicated; F32.A Depression, unspecified; F90.9 Attention-deficit hyperactivity disorder, unspecified type
CPT/HCPCS: 81025; 45378; J2704

== ENCOUNTER → 2025-03-10 | Outpatient (CLI) | payer MEDICAID ==
--- NOTE | 2025-03-11 15:30 | XR ---
EXAMINATION TYPE: XR chest 2V DATE OF EXAM: 03/10/2025 3:15 PM COMPARISON: 08/10/2017 CLINICAL INDICATION: Female, 34 years old with history of J06.9, TECHNIQUE: XR chest 2V view(s) obtained. FINDINGS: The heart size is normal. The pulmonary vasculature is normal. The lungs are clear. IMPRESSION: 1. No acute pulmonary process. [facility], , 03/10/2025 9:13 PM
== END | disposition home or self-care (01) ==
LOC: RADXRMAIN 15:03
DX: J06.9 Acute upper respiratory infection, unspecified (principal)
CPT/HCPCS: 71046

== ENCOUNTER 2025-04-04 07:51 | Emergency (ER) | payer MEDICAID ==
--- NOTE | 2025-04-04 08:03 | ED ---
Abdominal Pain HPI - General Chief Complaint: Urogenital Stated Complaint: Hematuria, back pain Time Seen by Provider: 04/04/25 07:57 Source: patient, RN notes reviewed Mode of arrival: ambulatory Limitations: no limitations - History of Present Illness Initial Comments: This is a 34-year-old female who presents to the emergency department for abdominal pain and hematuria. States that for about a week she has been experiencing hematuria, however she was not initially having any discomfort with this. She followed up with Dr. Duke, her RESEARCH AND DEVELOPMENT DIRECTOR, and was started on Macrobid for possible infection as well as something for a yeast infection. Her urine was also sent out to be cultured. However this morning she developed pain in her right flank and right lower quadrant region, which has never happened before. She does also continue to have hematuria. States that this is all in her urine and not any vaginal bleeding. Denies any history of kidney stones or similar symptoms in the past. She has mild nausea but no vomiting. MD Complaint: abdominal pain, flank pain - Related Data Previous Rx's Medication Instructions Recorded Ketorolac [Toradol] 10 mg PO Q6HR PRN #15 tab 04/04/25 Ondansetron Odt [Zofran Odt] 4 mg PO Q8HR PRN #20 tab 04/04/25 Tamsulosin [Flomax] 0.4 mg PO DAILY 7 Days #7 cap 04/04/25 Allergies Allergy/AdvReac Type Severity Reaction Status Date / Time No Known Allergies Allergy Verified 04/04/25 07:56 Review of Systems ROS Statement: Those systems with pertinent positive or pertinent negative responses have been documented in the HPI. ROS Other: All systems not noted in ROS Statement are negative. Past Medical History Past Medical History: Asthma Additional Past Medical History / Comment(s): eczema History of Any Multi-Drug Resistant Organisms: None Reported Past Surgical History: Section, Uterine Ablation Additional Past Surgical History / Comment(s): [place] teeth c-secx2 tummytuck 2023 breast augmentation 2023 Past Anesthesia/Blood Transfusion Reactions: No Reported Reaction Additional Past Anesthesia/Blood Transfusion Reaction / Comment(s): no hx blood transfusion Past Psychological History: ADD/ADHD, Depression Smoking Status: Never smoker Past Alcohol Use History: Occasional Past Drug Use History: None Reported - Past Family History Mother Family Medical History: Cancer Additional Family Medical History / Comment(s): grandmother hx CA Father Family Medical History: No Reported History General Exam Limitations: no limitations General appearance: alert, in distress Head exam: Present: atraumatic, normocephalic, normal inspection Respiratory exam: Present: normal lung sounds bilaterally. Absent: respiratory distress, wheezes, rales, rhonchi, stridor Cardiovascular Exam: Present: regular rate, normal rhythm GI/Abdominal exam: Present: soft, tenderness (RLQ), normal bowel sounds. Absent: distended Back exam: Present: CVA tenderness (R). Absent: CVA tenderness (L) Neurological exam: Present: alert, oriented X3, CN II-XII intact Psychiatric exam: Present: normal affect, normal mood Skin exam: Present: warm, dry, intact, normal color. Absent: rash Course Vital Signs 04/04/25 04/04/25 07:53 11:30 Temperature 97.5 F L 98.7 F Pulse Rate 91 77 Respiratory 20 16 Rate Blood Pressure 134/67 119/71 O2 Sat by Pulse 97 99 Oximetry Medical Decision Making - Medical Decision Making This is a 34-year-old female who presents to the emergency department for abdominal pain and hematuria. Was pt. sent in by a medical professional or institution? @ -No Did you speak to anyone other than the patient for history? @ -No Did you review nursing and triage notes? @ -Yes, and I agree, it is accurate with regards to the patient's symptoms. Were old charts reviewed? @ -Urine culture from 04/01/2025 which was negative. Differential Diagnosis? @ -Differential Abdominal Pain Women: Appendicitis, Cholecystitis, diverticulosis, ischemic bowel, pancreatitis, hepatitis, UTI, gastroenteritis, AAA, incarcerated hernia, bowel obstruction, constipation, inflammatory bowel, hepatitis, peptic ulcer disease, splenic infarction, perforated viscus, vulvitis, ovarian torsion, PID, kidney stone, p lacenta abruption, this is not meant to be an all-inclusive list EKG interpreted by me (3pts min.)? @ -Not obtained X-rays interpreted by me (1pt min.)? @ -Not obtained CT interpreted by me (1pt min.)? @ -CT scan of the abdomen and pelvis obtained. My interpretation identifies a right ureteral calculus. U/S interpreted by me (1pt. min.)? @ -Not obtained What testing was considered but not performed? (CT, X-rays, U/S, labs)? Why? @ -None What meds were considered but not given? Why? @ -None Did you discuss the management of the patient with other professionals? @ -No Did you reconcile home meds? @ -No Was smoking cessation discussed for >3mins.? @ -No Was critical care preformed (if so, how long)? @ -No Were there social determinants of health that impacted care today? How? (Homelessness, low income, unemployed, alcoholism, drug addiction, transportation, low edu. Level, literacy, decrease access to med. care, long-term, rehab)? @ -No Was there de-escalation of care discussed even if they declined? (Discuss DNR or withdrawal of care, Hospice)? @ -No What co-morbidities impacted this encounter? (DM, HTN, Smoking, COPD, CAD, Cancer, CVA, Hep., AIDS, mental health diagnosis, sleep apnea, morbid obesity)? @ -None Was patient admitted / discharged? @ -Discharged. Lab work demonstrates an elevated lactic acid of 3.8 and is o therwise unremarkable. Urinalysis demonstrates a large amount of blood but is negative for signs of infection. CT scan of the abdomen and pelvis demonstrates a 5 mm calculus in the right distal ureter with hydronephrosis. Findings reviewed with the patient. Symptoms well-controlled in the emergency department. Urine culture from 04/01/2025 was reviewed and found to be negative. Advised that she can discontinue the Macrobid if she would like. Toradol, Zofran, and Flomax prescribed for further management. Information for follow-up with urology was provided and she was discharged home in stable condition. Case discussed with ED attending Dr. Noonan. Undiagnosed new problem with uncertain prognosis? @ -None Drug Therapy requiring intensive monitoring for toxicity (Heparin, Nitro, Insulin, Cardizem)? @ -None Were any procedures done? @ -None Diagnosis/symptom? @ -Right ureteral calculus, hydronephrosis Acute, or Chronic, or Acute on Chronic? @ -Acute Uncomplicated (without systemic symptoms) or Complicated (systemic symptoms)? @ -Uncomplicated Side effects of treatment? @ -None Exacerbation, Progression, or Severe Exacerbation] @ -Not applicable Poses a threat to life or bodily function? @ -No - Lab Data Result diagrams: 04/04/25 08:36 04/04/25 08:36 Lab Results 04/04/25 04/04/25 04/04/25 Range/Units 08:36 08:36 08:36 WBC 5.99 (4.50-10.00) 10*3/uL RBC 4.19 (4.10-5.20) 10*6/uL Hgb 13.1 (12.0-15.0) g/dL Hct 39.0 (37.2-46.3) % MCV 93.1 (80.0-97.0) fL MCH 31.3 (27.0-32.0) pg MCHC 33.6 (32.0-37.0) g/dL Plt Count 237 (140-440) 10*3/uL MPV 10.0 (9.5-12.2) fL Immature Gran % (Auto) 0.5 % Neutrophils % 49.1 % Lymphocytes % 40.9 % Monocytes % 6.8 % Eosinophils % 2.2 % Basophils % 0.5 % Immature Gran # 0.03 (0.00-0.04) 10*3/uL Neutrophils # 2.94 (1.80-7.70) 10*3/uL Lymphocytes # 2.45 (0.90-5.00) 10*3/uL Monocytes # 0.41 (0.20-1.00) 10*3/uL Eosinophils # 0.13 (0.04-0.35) 10*3/uL Basophils # 0.03 (0.00-0.10) 10*3/uL Sodium 145 (137-145) mmol/L Potassium 3.9 (3.5-5.1) mmol/L Chloride 109 H (98-107) mmol/L Carbon Dioxide 17 L (22-30) mmol/L Anion Gap 19 mmol/L BUN 15 (7-17) mg/dL Creatinine 0.72 (0.52-1.04) mg/dL Est GFR (CKD-EPI)AfAm >90 (>60 ml/min/1.73 sqM) Est GFR (CKD-EPI)NonAf >90 (>60 ml/min/1.73 sqM) Glucose 107 H (74-99) mg/dL Lactic Ac Sepsis Rflx Plasma Lactic Acid Antoni 3.8 H* (0.7-2.0) mmol/L Calcium 10.4 H (8.4-10.2) mg/dL Total Bilirubin 0.3 (0.2-1.3) mg/dL AST 27 (14-36) U/L ALT 25 (4-34) U/L Alkaline Phosphatase 113 (38-126) U/L Total Protein 8.3 H (6.3-8.2) g/dL Albumin 5.1 H (3.5-5.0) g/dL Lipase 180 (23-300) U/L HCG, Qual Not Detected Urine Color Urine Appearance (Clear) Urine pH (5.0-8.0) Ur Specific [place] (1.001-1.035) Urine Protein (Negative) Urine Glucose (UA) (Negative) Urine Ketones (Negative) Urine Blood (Negative) Urine Nitrite (Negative) Urine Bilirubin (Negative) Urine Urobilinogen (<2.0) mg/dL Ur Leukocyte Esterase (Negative) Urine RBC (0-5) /hpf Urine WBC (0-5) /hpf Ur Squamous Epith Cells (0-4) /hpf Urine Mucus (None) /hpf 04/04/25 04/04/25 Range/Units 09:10 09:30 WBC (4.50-10.00) 10*3/uL RBC (4.10-5.20) 10*6/uL Hgb (12.0-15.0) g/dL Hct (37.2-46.3) % MCV (80.0-97.0) fL MCH (27.0-32.0) pg MCHC (32.0-37.0) g/dL Plt Count (140-440) 10*3/uL MPV (9.5-12.2) fL Immature Gran % (Auto) % Neutrophils % % Lymphocytes % % Monocytes % % Eosinophils % % Basophils % % Immature Gran # (0.00-0.04) 10*3/uL Neutrophils # (1.80-7.70) 10*3/uL Lymphocytes # (0.90-5.00) 10*3/uL Monocytes # (0.20-1.00) 10*3/uL Eosinophils # (0.04-0.35) 10*3/uL Basophils # (0.00-0.10) 10*3/uL Sodium (137-145) mmol/L Potassium (3.5-5.1) mmol/L Chloride (98-107) mmol/L Carbon Dioxide (22-30) mmol/L Anion Gap mmol/L BUN (7-17) mg/dL Creatinine (0.52-1.04) mg/dL Est GFR (CKD-EPI)AfAm (>60 ml/min/1.73 sqM) Est GFR (CKD-EPI)NonAf (>60 ml/min/1.73 sqM) Glucose (74-99) mg/dL Lactic Ac Sepsis Rflx Y Plasma Lactic Acid Antoni (0.7-2.0) mmol/L Calcium (8.4-10.2) mg/dL Total Bilirubin (0.2-1.3) mg/dL AST (14-36) U/L ALT (4-34) U/L Alkaline Phosphatase (38-126) U/L Total Protein (6.3-8.2) g/dL Albumin (3.5-5.0) g/dL Lipase (23-300) U/L HCG, Qual Urine Color Yellow Urine Appearance Cloudy H (Clear) Urine pH 5.5 (5.0-8.0) Ur Specific [place] 1.020 (1.001-1.035) Urine Protein Negative (Negative) Urine Glucose (UA) Negative (Negative) Urine Ketones 2+ H (Negative) Urine Blood Large H (Negative) Urine Nitrite Negative (Negative) Urine Bilirubin Negative (Negative) Urine Urobilinogen <2.0 (<2.0) mg/dL Ur Leukocyte Esterase Negative (Negative) Urine RBC >182 H (0-5) /hpf Urine WBC 3 (0-5) /hpf Ur Squamous Epith Cells 4 (0-4) /hpf Urine Mucus Rare H (None) /hpf - Radiology Data Radiology results: report reviewed, image reviewed Disposition Clinical Impression: Right ureteral calculus, Hydronephrosis Disposition: HOME SELF-CARE Instructions (If sedation given, give patient instructions): Hydronephrosis (ED), Ureteral Stones (ED) Additional Instructions: Return to the emergency department with any new, worsening, or concerning symptoms. Take the Toradol with Tylenol as needed for pain relief. If you choose to take the Toradol, do not take any other anti-inflammatories such as ibuprofen, take one or the other. Take the Zofran up to every 8 hours as needed for nausea and vomiting. Take the Flomax daily until your pain resolves. Follow-up with the urologist listed below. Follow up with your primary care provider in 1-2 days. Prescriptions: Tamsulosin [Flomax] 0.4 mg PO DAILY 7 Days #7 cap Ketorolac [Toradol] 10 mg PO Q6HR PRN #15 tab PRN Reason: Pain Ondansetron Odt [Zofran Odt] 4 mg PO Q8HR PRN #20 tab PRN Reason: Nausea And Vomiting Is patient prescribed a controlled substance at d/c from ED?: No Referrals: Juan Joés Garcia MD [Primary Care Provider] - 1-2 days Momo Yee MD [STAFF PHYSICIAN] - 1-2 days Time of Disposition: 10:31
[2025-04-04] MEDS: KETOROLAC 15 MG/ML 1 ML VIAL IVP STA ×2 (08:23→11:19)
[2025-04-04] MEDS: MORPHINE SULFATE 4 MG/ML SYRINGE IVP STA ×2 (08:23→11:20)
[2025-04-04] MEDS: ONDANSETRON 4 MG/2 ML VIAL IVP STA (08:23)
[2025-04-04] MEDS: SODIUM CHLORIDE 0.9% 1,000 ML IV ONE (08:31)
[2025-04-04 08:45] LABS: Basophils # (A) 0.03 10*3/uL (0.00-0.10); Basophils % (A) 0.5 %; Eosinophils # (A) 0.13 10*3/uL (0.04-0.35); Eosinophils % (A) 2.2 %; HCT 39.0 % (37.2-46.3); HGB 13.1 g/dL (12.0-15.0); Lymphocytes # (A) 2.45 10*3/uL (0.90-5.00); Lymphocytes % (A) 40.9 %; MCH 31.3 pg (27.0-32.0); MCHC 33.6 g/dL (32.0-37.0); MCV 93.1 fL (80.0-97.0); Monocytes # (A) 0.41 10*3/uL (0.20-1.00); Monocytes % (A) 6.8 %; Neutrophils # (A) 2.94 10*3/uL (1.80-7.70); Neutrophils % (A) 49.1 %; Platelet Count 237 10*3/uL (140-440); RBC 4.19 10*6/uL (4.10-5.20); RDW 13.3 % (11.5-14.5); WBC 5.99 10*3/uL (4.50-10.00)
[2025-04-04 08:57] LABS: ALT 25 U/L (4-34); AST 27 U/L (14-36); African American GFR (CKD) >90 (>60 ml/min/1.73 sqM); Albumin 5.1 g/dL (3.5-5.0); Alkaline Phosphatase 113 U/L (38-126); Anion Gap 19 mmol/L; Blood Urea Nitrogen 15 mg/dL (7-17); Calcium 10.4 mg/dL (8.4-10.2); Carbon Dioxide 17 mmol/L (22-30); Chloride 109 mmol/L (98-107); Glucose 107 mg/dL (74-99); Lipase 180 U/L (23-300); Non-African American GFR(CKD) >90 (>60 ml/min/1.73 sqM); Potassium 3.9 mmol/L (3.5-5.1); Sodium 145 mmol/L (137-145); Total Protein 8.3 g/dL (6.3-8.2)
[2025-04-04 08:59] LABS: HCG,Qualitative Serum Not Detected
--- NOTE | 2025-04-04 09:44 | CT ---
EXAMINATION TYPE: CT abdomen pelvis wo con DATE OF EXAM: 04/04/2025 9:26 AM COMPARISON: None CLINICAL INDICATION: Female, 34 years old with history of Right flank pain; rt flank pain / gross hem aturia TECHNIQUE: Axial CT abdomen pelvis wo con;Sagittal and coronal reformats were created on a separate workstation. Contrast used: mL of , (none if empty) Oral contrast used: without Oral Contrast (none if empty) CT DLP: 588.3 mGycm, Automated exposure control for dose reduction was used. FINDINGS: LOWER CHEST: Unremarkable ABDOMEN LIVER: Unremarkable GALLBLADDER AND BILE DUCTS: Unremarkable. PANCREAS: Unremarkable. SPLEEN: Unremarkable. ADRENAL GLANDS: Unremarkable. KIDNEYS AND URETERS: Moderate right hydronephrosis secondary obstructing distal 5 mm calculus in the ureter. There is additional nonobstructing right renal calculi measuring up to 5 mm. No left renal ca lculus no left hydronephrosis. PELVIS BLADDER: No evidence for wall thickening or mass given limitations of exam. REPRODUCTIVE: Unremarkable. ABDOMEN & PELVIS STOMACH AND BOWEL: No evidence of bowel obstruction. Scattered colonic diverticula. The appendix is n ormal. PERITONEUM/RETROPERITONEUM: No evidence of pneumoperitoneum or free fluid. VASCULATURE: No evidence of aortic aneurysm. MUSCULOSKELETAL: No acute osseous abnormalities LYMPH NODES: No gross evidence for lymphadenopathy. SOFT TISSUE/ABDOMINAL WALL: Suspected post changes of low pelvis anterior abdominal wall. IMPRESSION: Moderate right hydronephrosis secondary obstructing distal 5 mm calculus in the ureter. There is john tional nonobstructing right renal calculi measuring up to 5 mm. [facility], , 04/04/2025 9:42 AM
[2025-04-04 10:17] LABS: Bilirubin,Urine Negative (Negative); Blood,Urine Large (Negative); Color,Urine Yellow; Glucose,Urine (UA) Negative (Negative); Ketones,Urine 2+ (Negative); Leukocyte Esterase,Urine Negative (Negative); Mucus,Urine Rare /hpf; Nitrite,Urine Negative (Negative); PH, Urine 5.5 (5.0-8.0); Protein,Urine Negative (Negative); RBC,Urine >182 /hpf (0-5); Specific Gravity,Urine 1.020 (1.001-1.035); Squamous Epithelial Cell,Urine 4 /hpf (0-4); Urobilinogen,Urine <2.0 mg/dL (<2.0); WBC,Urine 3 /hpf (0-5)
[2025-04-04] MEDS: ACET/COD 300 MG/30 MG STARTER PACK 6 TAB BTL PO STA (11:21)
[2025-04-04 11:30] VITALS: BP 119/71; PULSE 77; RESP 16; TEMP 98.7
== END 2025-04-04 11:33 | disposition home or self-care (01) ==
LOC: EC 07:51
DX: N13.2 Hydronephrosis with renal and ureteral calculous obstruction (principal)
CPT/HCPCS: 36415; 80053; 83605; 83690; 85025; 81001; 84703; 74176; 99284; 96374; 96376; 96375; 96361; J2270; J2405; J1885